=== PATIENT | female | born 1975 | race Caucasian/White ===

== ENCOUNTER 2019-11-03 15:38 | Inpatient (IN) | payer OTHER, SELFPAY ==
[~2019-11-03] VITALS: Ht 149.9 cm; Wt 54.9 kg
[~2019-11-03 15:38] MED LIST: CALCIUM GLUCONATE 1,000 MG in D5W MINI-BAG PLUS 100 ML IV ONE
[2019-11-03] MEDS ORDERED: ETOMIDATE INJ 20MG/10ML VIAL IV ONE (16:00)
[2019-11-03] MEDS ORDERED: NS 1,000 ML IV ONE (16:00)
[2019-11-03] MEDS ORDERED: SUCCINYLCHOLINE INJ 200 MG/10 ML VIAL (J0330) IV ONE (16:00)
[2019-11-03] MEDS ORDERED: NALOXONE INJ 2 MG/2 ML SYRINGE (J2310) IV STA (16:03)
--- NOTE | 2019-11-03 16:08 | REP ---
Portable chest x-ray: Single view. History: Drug overdose No comparison study. Findings: Endotracheal tube is in good position at the level of the proximal clavicles. The lungs are well inflated and clear. Pleural angles are sharp. Cardiomediastinal silhouette is unremarkable. There is mild gaseous distension of the stomach. Impression: Endotracheal tube in good position. Mildly distended stomach. Otherwise no active disease. Electronically Signed by Nabil Rivas MD 11/03/2019 03:59 P
[2019-11-03 16:14] LABS: BASO % 0.3 % (0.0-1.0); EOS % 0.6 % (0.0-3.0); HEMATOCRIT 39.7 % (36.0-47.0); HEMOGLOBIN 14.1 g/dl (12.0-15.5); LYMPH % 28.6 % (24.0-44.0); MEAN CORPUSCULAR HEMOGLOBIN 31.8 pg (27.0-33.0); MEAN CORPUSCULAR HGB CONC 35.5 g/dl (32.0-36.5); MEAN CORPUSCULAR VOLUME 89.4 fl (80.0-96.0); MONO # 0.6 10^3/uL (0.0-0.8); MONO % 7.8 % (0.0-5.0); NEUTROPHILS # 4.1 10^3/uL (1.5-8.5); NEUTROPHILS % 58.4 % (36.0-66.0); PLATELET COUNT, AUTOMATED 177 10^3/uL (150-450); RED BLOOD COUNT 4.44 10^6/uL (4.00-5.40)
[2019-11-03 16:37] LABS: OSMOLALITY SERUM 275 MOSM/KG (275-295)
[2019-11-03] MEDS ORDERED: CHARCOAL ACTIVATED LIQUID 25 GM/120 ML BTL PO ONE (16:45)
[2019-11-03] MEDS ORDERED: SODIUM BICARBONATE 8.4% INJ 50 ML SYRINGE IV ONE (16:45)
[2019-11-03 16:49] LABS: AMPHETAMINES LEVEL URINE NEGATIVE (NEGATIVE); BARBITURATES URINE NEGATIVE (NEGATIVE); BENZODIAZEPINES URINE NEGATIVE (NEGATIVE); CANNABINOIDS URINE NEGATIVE (NEGATIVE); COCAINE METABOLITE URINE NEGATIVE (NEGATIVE); METHADONE URINE NEGATIVE (NEGATIVE); OPIATES URINE POSITIVE (NEGATIVE); PHENCYCLIDINE URINE NEGATIVE (NEGATIVE)
[2019-11-03 16:49] LABS: ACETAMINOPHEN LEVEL 49.6 UG/ML (10.0-30.0); ALBUMIN 3.5 GM/DL (3.2-5.2); ALT/SGPT 12 U/L (12-78); BILIRUBIN,DIRECT 0.2 MG/DL (0.0-0.2); BILIRUBIN,TOTAL 0.9 MG/DL (0.2-1.0); BLOOD UREA NITROGEN 7 MG/DL (7-18); CALCIUM LEVEL 8.1 MG/DL (8.5-10.1); CARBON DIOXIDE LEVEL 22 MEQ/L (21-32); CHLORIDE LEVEL 101 MEQ/L (98-107); CPK CREATINE PHOSPHOKINASE 64 U/L (26-192); CREATININE FOR GFR 0.48 MG/DL (0.55-1.30); ETHYL ALCOHOL (ETHANOL) < 0.003 % (0.000-0.010); GLOMERULAR FILTRATION RATE > 60.0 (>58); GLUCOSE, FASTING 91 MG/DL (70-100); POTASSIUM SERUM 3.1 MEQ/L (3.5-5.1); SALICYLATE LEVEL 7.7 MG/DL (5.0-30.0); SODIUM LEVEL 134 MEQ/L (136-145); TOTAL PROTEIN 5.5 GM/DL (6.4-8.2)
[2019-11-03] MEDS ORDERED: ACETYLCYSTEINE 10,500 MG in D5W 250 ML IV ONE (17:00)
[2019-11-03 17:14] LABS: ABG BASE EXCESS -6.8 (-2.0-2.0); ABG HCO3 18.2 MEQ/L (22.0-26.0); ABG O2 SATURATION 98.9 % (95.0-99.0); ABG PARTIAL PRESSURE CO2 34.8 mmHg (35.0-45.0); ABG PARTIAL PRESSURE O2 163.7 mmHg (75.0-100.0); ABG TOTAL CO2 19.3 MEQ/L (22.0-29.0); ABG pH (ARTERIAL) 7.336 UNITS (7.350-7.450)
[2019-11-03] MEDS ORDERED: HUMI40KI SC (17:26)
[2019-11-03] MEDS ORDERED: SULF1TAB30 PO (17:26)
[2019-11-03] MEDS ORDERED: MED REC COMMENT (17:26)
[2019-11-03] MEDS ORDERED: METRCRM TOP (17:26)
--- NOTE | 2019-11-03 17:58 | REPVR ---
PROCEDURE INFORMATION: Exam: CT Head Without Contrast Exam date and time: 11/03/2019 4:00 PM Age: 44 years old Clinical indication: Other: Overdose; Additional info: Headache, altered mental, overdose TECHNIQUE: Imaging protocol: Computed tomography of the head without contrast. Radiation optimization: All CT scans at this facility use at least one of these dose optimization techniques: automated exposure control; mA and/or kV adjustment per patient size (includes targeted exams where dose is matched to clinical indication); or iterative reconstruction. COMPARISON: No relevant prior studies available. FINDINGS: Brain: No acute intracranial hemorrhage, cerebral edema, or midline shift. Ventricles: No hydrocephalus. Bones/joints: No acute fracture. Sinuses: No acute sinusitis. Mastoid air cells: Visualized mastoid air cells are well aerated. Soft tissues: Unremarkable. IMPRESSION: No acute intracranial abnormality. Electronically signed by: Indio Jin On 11/03/2019 17:57:43 PM
[2019-11-03] MEDS ORDERED: KCL 10MEQ/100ML SWI (KRUN) 10 MEQ in IV 1 EA IV ONE ×2 (18:00→19:30)
[2019-11-03] MEDS ORDERED: POTASSIUM CHLORIDE 10 MEQ SR TABLET PO ONE (18:00)
[2019-11-03] MEDS: propofoL 1,000 MG in IV 1 EA IV SCH (18:40)
--- NOTE | 2019-11-03 19:51 | HPEPDOC ---
[facility] Medical History & Physical Date of Admission Nov 03, 2019 Date of Service: Nov 03, 2019 Other Provider No PCP Attending Physician: SAGRARIO CROOKS DO History and Physical CHIEF COMPLAINT: Overdose on multiple medications, unresponsive HISTORY OF PRESENT ILLNESS: Patient is a 44 year old female who was found unresponsive by family at 1440 today, she had been texting with them until about 1030 this morning and had been seen earlier that morning without any concerns other than a headache at the time. She was found in her bed with 4 suicide notes next to bottles of pills including robaxin, hydrocodone, and amitriptyline. When her found her, he called 911 and was instructed to start CPR, this was continued by police. When EMS arrived they gave her several doses of narcan without response and upon arrival in the emergency department she was given an additional dose of narcan and was intubated. Poison control was called in the ED with recommendations to give activated charcoal. CBC, lactic acid, UA WNL. Urine opiates positive. PAST MEDICAL HISTORY: 1. Psoriatic arthritis PAST SURGICAL HISTORY: unknown. SOCIAL HISTORY: Unknown. FAMILY HISTORY: Unkown ALLERGIES: Please see below. REVIEW OF SYSTEMS: Unable to obtain secondary to being intubated HOME MEDICATIONS: Please see below. PHYSICAL EXAMINATION: VITAL SIGNS: See below GENERAL APPEARANCE: Sedate, intubated, non-toxic appearing female who appears stated age. HENT: Normocephalic, atraumatic. Pupils 3mm, equal, round, non-reactive to light. Nares patent. Endotracheal tube in place. CARDIOVASCULAR: tachycardic rate, regular rhythm, normal S1 and S2. No murmurs, gallops, or rubs. LUNGS: CTAB with full breath sounds bilaterally, no wheezes, crackles, or rhonchi. ABDOMEN: Soft, non-tender, non-distended. No masses or eccymosis. EXTREMITIES: No cyanosis or edema. NEUROLOGICAL: Patient is sedate presently. LABORATORY DATA: See below. IMAGING: CXR showing ETT in place. MICROBIOLOGY: Please see below. ASSESSMENT: 44 year old female presenting with intentional overdose with multiple medications PLAN: #. Multi-drug Overdose - Poison control contacted. Instructions given for activated charcoal, acetadote to be given. - Activated charcoal given. Initiating Acetadote loading dose over 1 hour. Following acetadote 21 hour protocol. - Initial tylenol level of 49, repeat tylenol levels, CMP's Q4H - QRS widening reduced on 2 hour repeat EKG. #. Acute Respiratory failure - Likely secondary to tylenol and opiate overdose - Will continue patient on propofol drip, ETT in place - Repeat ABG scheduled for tomorrow morning, will initiate SBT at that time. #. Elevated salicylate level - Initial elevated at 9, repeat at 2 hours down trending. #. Hypokalemia - Ordered x2 Kruns, starting patient on LR @rate of 125/hr. #. Hyponatremia - Giving LR, will continue to trend electrolytes. #. Suicide attempt - Will consult psychiatry once medically cleared. #. Psoriatic Arthritis - Holding home medications at this time Diet: NPO DVT/GI prophylaxis:heparin 5000mg SC TID/none indicated. Drips: none Code status: Full code. Disposition: Will continue to monitor in the ICU while intubated Vital Signs Vital Signs Date Time Temp Pulse Resp B/P (MAP) Pulse Ox O2 Delivery O2 Flow Rate FiO2 11/03/19 17:33 100 16 100 35 11/03/19 16:53 Ventilator 11/03/19 16:45 97/52 (67) 11/03/19 15:46 97.2 Laboratory Data Labs 24H Laboratory Tests 2 11/03/19 16:00: Immature Granulocyte % (Auto) 4.3H, Neutrophils (%) (Auto) 58.4, Lymphocytes (%) (Auto) 28.6, Monocytes (%) (Auto) 7.8H, Eosinophils (%) (Auto) 0.6, Basophils (%) (Auto) 0.3, Neutrophils # (Auto) 4.1, Lymphocytes # (Auto) 2.0, Monocytes # (Auto) 0.6, Eosinophils # (Auto) 0.0, Basophils # (Auto) 0.0, Nucleated Red Blood Cells % (auto) 0.0, Anion Gap 11, Glomerular Filtration Rate > 60.0, Osmolality 275, Calcium Level 8.1L, Total Bilirubin 0.9, Direct Bilirubin 0.2, Aspartate Amino Transf (AST/SGOT) 13, Alanine Aminotransferase (ALT/SGPT) 12, Alkaline Phosphatase 42L, Total Creatine Kinase 64, Total Protein 5.5L, Albumin 3.5, Albumin/Globulin Ratio 1.75, Thyroid Stimulating Hormone (TSH) 4.980H, Salicylates Level 7.7, Acetaminophen Level 49.6H, Ethyl Alcohol Level < 0.003 11/03/19 16:01: Urine Color SIRENA, Urine Appearance CLEAR, Urine pH 5.0, Urine Specific [place] 1.014, Urine Protein NEGATIVE, Urine Glucose (UA) NEGATIVE, Urine Ketones 2+H, Urine Blood NEGATIVE, Urine Nitrite NEGATIVE, Urine Bilirubin 1+H, Urine Urobilinogen 0.2, Urine Leukocyte Esterase NEGATIVE, Urine WBC (Auto) 1, Urine RBC (Auto) 1, Urine Hyaline Casts (Auto) 27, Urine Bacteria (Auto) NEGATIVE, Urine Squamous Epithelial Cells 0, Urine Mucus (Auto) SMALL, Urine Sperm (Auto) , Urine Opiates Screen POSITIVEH, Urine Methadone Screen NEGATIVE, Urine Barbiturates Screen NEGATIVE, Urine Phencyclidine Screen NEGATIVE, Urine Amphetamines Screen NEGATIVE, Urine Benzodiazepines Screen NEGATIVE, Urine Cocaine Metabolite Screen NEGATIVE, Urine Cannabinoids Screen NEGATIVE 11/03/19 17:10: Blood Gas Bicarbonate Standard 19.0L, Arterial Blood pH 7.336L, Arterial Blood Partial Pressure CO2 34.8L, Arterial Blood Partial Pressure O2 163.7H, Arterial Blood Total CO2 19.3L, Arterial Blood HCO3 18.2L, Arterial Blood Base Excess - 6.8L, Arterial Blood Oxygen Saturation 98.9 CBC/BMP Laboratory Tests 11/03/19 16:00 Home Medications Scheduled Adalimumab (Humira) 40 Mg/0.8 Ml Syringekit, 40 MG SC Q2WK Metronidazole (Metronidazole) 45 Gm Cream..g., 1 APLCT TOP DAILY APPLY TO CHEEKS/CHIN AND TEMPLES DAILY Sulfasalazine (Sulfasalazine) 500 Mg Tablet, 500 MG PO BID Miscellaneous Medications [Med Rec Comment] OBTAINED LIST FROM [employer]. STATED PT TAKES METHOTREXATE BUT NOT FILLED WITH THE PHARMACY. Allergies Coded Allergies: No Known Allergies (Verified Allergy, Unknown, 11/03/19) A-FIB/CHADSVASC A-FIB History Current/History of A-Fib/PAF?: No Current PO Anticoag Therapy: No Age/Risk Factor Scoring CHADSVASC: CHADSVASC Response (Comments) Value Age Risk Factor Age < 65 years old 0 Gender Risk Factor Female 1 Hx of CHF No 0 Hx of HTN No 0 Hx of Stroke/TIA/or VTE No 0 Hx of Diabetes No 0 Hx of Vascular Disease No 0 Total 1 GME ATTESTATION GME ATTESTATION My faculty preceptor for this patient encounter was physically present during the encounter and was fully available. All aspects of the patient interview, examination, medical decision making process, and medical care plan development were reviewed and approved by the faculty preceptor. The faculty preceptor is aware and concurs with the plan as stated in the body of this note and will attest to such by his/her cosignature. ATTENDING NOTE Agree with above as documented by the resident including history, physical, and assessment except as otherwise noted below. Patient seen and examined independently and with the resident. Patient is a 44-year-old female who was found unconscious after an apparent intentional overdose. Multiple medications taken including Robaxin, [place], amitriptyline who was found unresponsive by her this afternoon. [facility] she failed to improve with multiple doses of Narcan. Patient remains intubated and sedated on propofol. She was gove activated charcoal in the emergency department as well as sodium bicarbonate. 21 hour N- acetylcysteine for reversal of Tylenol overdose was also started. We'll monitor electrolytes, liver function, and Tylenol every 4 hours. We'll repeat EKG in the morning. We'll monitor closely in the ICU. We'll do daily sedation vacation and SBT. Upon improve or patient will need to be transferred for mental health evaluation. Assessment 1. Intentional overdose 2. Acute hypoxic respiratory failure 3. Hypokalemia Dispo: Consulted with poison control. We'll monitor in the ICU. Continue N- acetylcysteine per 21 hours. We'll monitor EKG, electrolytes, liver enzymes, Tylenol level. Billin DUSTIN KAUR DO Nov 03, 2019 18:16 SAGRARIO CROOKS DO Nov 03, 2019 20:22
[2019-11-03] MEDS ORDERED: ACETYLCYSTEINE 3,500 MG in D5W 500 ML IV ONE (20:00)
--- NOTE | 2019-11-03 20:09 | IPNPDOC ---
Date Seen The patient was seen on 11/03/19. Progress Note poison control Michelle discussed acetaminophen level with [employer] with the following recommendations: -if time of ingestion is confirmed at 1030 am, no need to treat for acetaminophen toxicity with acetadote. -if unknown time of ingestion, will need to treat with acetadote. Plan: await repeat acetaminophen level call poison control (willbe in the office until 3am)with level, to decide if treatment is needed. VS, I&O, 24H, Fishbone Vital Signs/I&O Vital Signs Date Time Temp Pulse Resp B/P (MAP) Pulse Ox O2 Delivery O2 Flow Rate FiO2 11/03/19 19:30 111/68 (82) 11/03/19 19:25 88 100 11/03/19 18:10 16 Ventilator 11/03/19 17:33 35 11/03/19 15:46 97.2 Laboratory Data 24H LABS Laboratory Tests 2 11/03/19 16:00: Immature Granulocyte % (Auto) 4.3H, Neutrophils (%) (Auto) 58.4, Lymphocytes (%) (Auto) 28.6, Monocytes (%) (Auto) 7.8H, Eosinophils (%) (Auto) 0.6, Basophils (%) (Auto) 0.3, Neutrophils # (Auto) 4.1, Lymphocytes # (Auto) 2.0, Monocytes # (Auto) 0.6, Eosinophils # (Auto) 0.0, Basophils # (Auto) 0.0, Nucleated Red Blood Cells % (auto) 0.0, Anion Gap 11, Glomerular Filtration Rate > 60.0, Osmolality 275, Calcium Level 8.1L, Total Bilirubin 0.9, Direct Bilirubin 0.2, Aspartate Amino Transf (AST/SGOT) 13, Alanine Aminotransferase (ALT/SGPT) 12, Alkaline Phosphatase 42L, Total Creatine Kinase 64, Total Protein 5.5L, Albumin 3.5, Albumin/Globulin Ratio 1.75, Thyroid Stimulating Hormone (TSH) 4.980H, Salicylates Level 7.7, Acetaminophen Level 49.6H, Ethyl Alcohol Level < 0.003 11/03/19 16:01: Urine Color SIRENA, Urine Appearance CLEAR, Urine pH 5.0, Urine Specific [place] 1.014, Urine Protein NEGATIVE, Urine Glucose (UA) NEGATIVE, Urine Ketones 2+H, Urine Blood NEGATIVE, Urine Nitrite NEGATIVE, Urine Bilirubin 1+H, Urine Urobilinogen 0.2, Urine Leukocyte Esterase NEGATIVE, Urine WBC (Auto) 1, Urine RBC (Auto) 1, Urine Hyaline Casts (Auto) 27, Urine Bacteria (Auto) NEGATIVE, Urine Squamous Epithelial Cells 0, Urine Mucus (Auto) SMALL, Urine Sperm (Auto) , Urine Opiates Screen POSITIVEH, Urine Methadone Screen NEGATIVE, Urine Barbiturates Screen NEGATIVE, Urine Phencyclidine Screen NEGATIVE, Urine Amphetamines Screen NEGATIVE, Urine Benzodiazepines Screen NEGATIVE, Urine Cocai ne Metabolite Screen NEGATIVE, Urine Cannabinoids Screen NEGATIVE 11/03/19 17:10: Blood Gas Bicarbonate Standard 19.0L, Arterial Blood pH 7.336L, Arterial Blood Partial Pressure CO2 34.8L, Arterial Blood Partial Pressure O2 163.7H, Arterial Blood Total CO2 19.3L, Arterial Blood HCO3 18.2L, Arterial Blood Base Excess - 6.8L, Arterial Blood Oxygen Saturation 98.9 11/03/19 18:40: Salicylates Level 6.6, Lactic Acid Level 1.6 11/03/19 19:49: CBC/BMP Laboratory Tests 11/03/19 16:00 ALBERTO ARAUJO MD Nov 03, 2019 20:09
[2019-11-03 20:31] LABS: ACETAMINOPHEN LEVEL 30.9 UG/ML (10.0-30.0); ALBUMIN 2.9 GM/DL (3.2-5.2); ALT/SGPT 17 U/L (12-78); BILIRUBIN,TOTAL 1.1 MG/DL (0.2-1.0); BLOOD UREA NITROGEN 6 MG/DL (7-18); CALCIUM LEVEL 7.5 MG/DL (8.5-10.1); CARBON DIOXIDE LEVEL 24 MEQ/L (21-32); CHLORIDE LEVEL 102 MEQ/L (98-107); CREATININE FOR GFR 0.57 MG/DL (0.55-1.30); GLOMERULAR FILTRATION RATE > 60.0 (>58); GLUCOSE, FASTING 170 MG/DL (70-100); SODIUM LEVEL 136 MEQ/L (136-145); TOTAL PROTEIN 4.8 GM/DL (6.4-8.2)
[2019-11-03 20:32] LABS: POTASSIUM SERUM 2.8 MEQ/L (3.5-5.1)
[2019-11-03 20:46] VITALS: BP 144/90
[2019-11-03] MEDS: LR 1,000 ML IV SCH (21:24)
[2019-11-03] MEDS: MAG SULF 1GM/100ML (MAG RUN) 1 GM in IV 1 EA IV SCH ×2 (21:25→22:36)
[2019-11-03] MEDS: CHLORHEXIDINE GLUCONATE 0.12 % 15ML UDC (PERIDEX ORAL RINSE) MT SCH (21:30)
[2019-11-03] MEDS: HEPARIN SOD (PORCINE) 5000 UNITS/ML VIAL (J1644 PER 1000UNITS) SC SCH (21:39)
--- NOTE | 2019-11-03 21:39 | ECGEPIP ---
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
[2019-11-03 21:50] VITALS: BP 131/75
[2019-11-03 22:00] VITALS: BP 127/73
[2019-11-03 23:00] VITALS: BP 128/73
[2019-11-03 23:01] LABS: ALT/SGPT 11 U/L (12-78); BLOOD UREA NITROGEN 6 MG/DL (7-18); CALCIUM LEVEL 7.3 MG/DL (8.5-10.1); CARBON DIOXIDE LEVEL 21 MEQ/L (21-32); CHLORIDE LEVEL 104 MEQ/L (98-107); CREATININE FOR GFR 0.52 MG/DL (0.55-1.30); GLOMERULAR FILTRATION RATE > 60.0 (>58); GLUCOSE, FASTING 179 MG/DL (70-100); MAGNESIUM LEVEL 2.1 MG/DL (1.8-2.4); SODIUM LEVEL 137 MEQ/L (136-145)
[2019-11-03] MEDS ORDERED: ETOMIDATE INJ 20MG/10ML VIAL ONE (23:39)
[2019-11-03] MEDS ORDERED: SUCCINYLCHOLINE 100 MG/5 ML SYRINGE (J0330) ONE (23:39)
[2019-11-04] VITALS (28 sets, daily range): BP systolic 88–171; BP diastolic 51–86; O2SAT 96–99
[2019-11-04] MEDS ORDERED: ACETYLCYSTEINE 7,000 MG in D5W 1,000 ML IV ONE ×2
[2019-11-04] MEDS: KCL 10MEQ/100ML SWI (KRUN) 10 MEQ in IV 1 EA IV SCH ×12 (00:26→16:15)
[2019-11-04] MEDS ORDERED: CALCIUM GLUCONATE 1,000 MG in D5W MINI-BAG PLUS 100 ML IV ONE ×2 (00:30→12:00)
[2019-11-04] MEDS: propofoL 1,000 MG in IV 1 EA IV SCH (02:56)
[2019-11-04 04:58] LABS: HEMATOCRIT 37.6 % (36.0-47.0); HEMOGLOBIN 13.4 g/dl (12.0-15.5); MEAN CORPUSCULAR HEMOGLOBIN 31.7 pg (27.0-33.0); MEAN CORPUSCULAR HGB CONC 35.6 g/dl (32.0-36.5); MEAN CORPUSCULAR VOLUME 88.9 fl (80.0-96.0); PLATELET COUNT, AUTOMATED 160 10^3/uL (150-450); RED BLOOD COUNT 4.23 10^6/uL (4.00-5.40); WHITE BLOOD COUNT 10.1 10^3/uL (4.0-10.0)
[2019-11-04 05:13] LABS: ALT/SGPT 10 U/L (12-78); BILIRUBIN,TOTAL 0.6 MG/DL (0.2-1.0); BLOOD UREA NITROGEN 5 MG/DL (7-18); CALCIUM LEVEL 7.9 MG/DL (8.5-10.1); CARBON DIOXIDE LEVEL 24 MEQ/L (21-32); CHLORIDE LEVEL 103 MEQ/L (98-107); CREATININE FOR GFR 0.48 MG/DL (0.55-1.30); GLOMERULAR FILTRATION RATE > 60.0 (>58); GLUCOSE, FASTING 140 MG/DL (70-100); POTASSIUM SERUM 3.2 MEQ/L (3.5-5.1); SODIUM LEVEL 134 MEQ/L (136-145); TOTAL PROTEIN 5.3 GM/DL (6.4-8.2)
[2019-11-04] MEDS: HEPARIN SOD (PORCINE) 5000 UNITS/ML VIAL (J1644 PER 1000UNITS) SC SCH ×3 (05:46→21:04)
[2019-11-04 05:49] LABS: ABG BASE EXCESS -3.3 (-2.0-2.0); ABG HCO3 20.7 MEQ/L (22.0-26.0); ABG O2 SATURATION 99.1 % (95.0-99.0); ABG PARTIAL PRESSURE O2 187.1 mmHg (75.0-100.0); ABG STANDARD HCO3 21.8 MEQ/L (22.0-26.0); ABG TOTAL CO2 21.8 MEQ/L (22.0-29.0); ABG pH (ARTERIAL) 7.403 UNITS (7.350-7.450)
[2019-11-04] MEDS ORDERED: LORazepam 2 MG/ML VIAL (J2060) As Ordered ONE ×2 (07:34→22:25)
[2019-11-04] MEDS ORDERED: LORazepam 2 MG/ML VIAL (J2060) IV STA ×2 (07:40→23:58)
[2019-11-04] MEDS: dexmedeTOMidine 200 MCG in IV 1 EA IV SCH ×2 (07:52→12:52)
--- NOTE | 2019-11-04 08:15 | ECGEPIP ---
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 Subtle diffuse J-point elevation No change from 10/30/19. Electronically Signed on 11-04-2019 8:14:49 EST by Angel Morse
--- NOTE | 2019-11-04 08:40 | REP ---
Portable chest, 08:26 a.m., single AP view with the patient semi upright, post NG tube placement: There has been interval passage of a nasogastric tube. The distal tip of the nasogastric tube is in the upper abdomen, likely in the stomach, the precise location of the distal tip is excluded at the inferior film margin. There is an endotracheal tube with the tip terminating satisfactorily at the level of the aortic arch, above the jaguar, unchanged. Lung [place] are clear. Cardiac size is normal. The musa, mediastinum, skeletal structures are unremarkable. Impression: There are no acute cardiopulmonary findings. The endotracheal tube and nasogastric tube are in satisfactory positions. Electronically Signed by Papito Ornelas MD 11/04/2019 08:33 A
[2019-11-04] MEDS ORDERED: FAMOTIDINE 20 MG TAB PO SCH (09:00)
[2019-11-04] MEDS ORDERED: NICOTINE 14 MG/24 HR TRANSDERMAL TD PRN (09:00)
[2019-11-04] MEDS: CHLORHEXIDINE GLUCONATE 0.12 % 15ML UDC (PERIDEX ORAL RINSE) MT SCH ×2 (10:06→21:03)
[2019-11-04] MEDS ORDERED: LORazepam 2 MG/ML VIAL (J2060) IV PRN ×2 (10:30→19:00)
[2019-11-04] MEDS ORDERED: LR 1,000 ML IV ONE ×2 (10:30→14:00)
[2019-11-04] MEDS ORDERED: MAG SULF 1GM/100ML (MAG RUN) 1 GM in IV 1 EA IV ONE ×2 (11:00→12:00)
[2019-11-04 11:03] LABS: MAGNESIUM LEVEL 1.8 MG/DL (1.8-2.4); POTASSIUM SERUM 3.4 MEQ/L (3.5-5.1)
[2019-11-04] MEDS: LR 1,000 ML IV SCH ×3 (11:30→18:47)
[2019-11-04] MEDS ORDERED: POLYVINYL ALCOHOL OPHTH SOLN 15 ML(LIQUITEARS) OU PRN (13:30)
--- NOTE | 2019-11-04 14:18 | IPNPDOC ---
Date Seen The patient was seen on 11/04/19. Progress Note SUBJECTIVE: Patient seen and examined this morning at bedside. Her brother in law who is a family medicine physician is also in the room. He states she has no additional PMHx, no prior surgeries, family hx of HTN, elevated cholesterol levels, she has smoked less than 1/2PPD since high school, rare EtOH use, no recreational drug use, no recent travel, only travel to [place] many years ago, and 2 dogs at home. The pills she obtained were old pills of her 's and the hydrocodone was also an old medicationHe states their is no prior history of mental illness and this was very uncharacteristic of her to do. He states that they have noticed she has been acting strangely for the past month since she started the sulfasalazine for her RA. He notes personality changes and increased paranoia. Brief hospital course: Patient is a 44 year old female found unresponsive by family at 1440 on 11/03/2019 beside pill bottles containing robaxin, hydrocodone, and amitriptyline and clutching suicide notes. She had been texting them until about 1030 that morning and had been seen earlier that morning without concerns other than a headache at the time. Her found her, called EMS, initiated CPR, EMS noted a pulse on arrival and patient was intubated in the ED. Poison control was called in the ED with recommendations to give activated charcoal and acetadote. CBC, lactic acid, UA WNL. Urine opiates positive. Patient received step 1 of acetadote overnight. OBJECTIVE: PHYSICAL EXAMINATION: VITAL SIGNS: Tmax 98.3 overnight GENERAL APPEARANCE: Sedate, intubated, non-toxic appearing female who appears stated age. HENT: Normocephalic, atraumatic. PERRLA. Nares patent. Endotracheal tube in place. CARDIOVASCULAR: tachycardic rate, regular rhythm, normal S1 and S2. No murmurs, gallops, or rubs. LUNGS: CTAB with full breath sounds bilaterally, no wheezes, crackles, or rhonchi. ABDOMEN: Soft, non-tender, non-distended. No masses or eccymosis. EXTREMITIES: No cyanosis or edema. NEUROLOGICAL: Not alert, non-purposeful movements of extremities, withdraws to pain. Does not open eyes to pain or stimuli. IMAGING: CT head negative on 11/03 CXR on 11/04 with no acute abnormalities, NG and ET tube in satisfactory positions. ASSESSMENT/PLAN: #. Multi-drug Overdose - Poison control contacted overnight and 2nd/3rd steps of 21 hour regimen D/C'd, last tylenol level of 10.6 @ 0411 had been downtrending. - Repeat EKG this AM with prolonged QTc, repeat labs showing K of 3.2. Contacted poison control again who recommended electrolyte replacements only. - Ordered 1G calcium gluconate, 2 mag runs, 6k of Kruns with 1 liter LR bolus, continuing to run LR maintenance fluids, have ordered q4 hr repeat labs and will trend to ensure we are keeping up with ongoing losses. #. Acute Respiratory failure - Likely secondary to tylenol and opiate overdose - ABG this AM were good, will continue patient at current settings; PRVC 16, 5, 350, 35%FiO2 - Weaning propofol drip and starting precedex drip for easier time with SBT, but will likely hold off on doing so today as patient is requiring significant rehydration and electrolyte replacement. - Repeat ABG scheduled for tomorrow morning, will try SBT once HR, labs have normalized. - PRN ativan Q3H ordered, artificial tears, chlorhexidine wash ordered. #. Dehydration - Patient's urine output has not been substantive and per she has not been eating or drinking much in the past week, will continue to give LR@125 ml/hr #. Sinus tachycardia - Suspect this is secondary to patient beginning to come off the propofol and having some pain. Planning to repeat EKG @1400 to ensure QTc returning to normal. #. Hypokalemia - See multidrug overdose, patient is receiving multiple Kruns, LR maintenance, LR bolus. #. Hyponatremia - Giving LR #. Suicide attempt - Will consult psychiatry once medically cleared. #. Psoriatic Arthritis - Holding home medications at this time RESOLVED PROBLEMS: Salicylate elevation. Diet: NPO DVT/GI prophylaxis: Heparin 5000mg SC TID/none indicated. Drips: none Code status: Full code. Disposition: Will continue to monitor in the ICU while intubated. VS, I&O, 24H, Fishbone Vital Signs/I&O Vital Signs Date Time Temp Pulse Resp B/P (MAP) Pulse Ox O2 Delivery O2 Flow Rate FiO2 11/04/19 12:00 28 11/04/19 12:00 98.9 111 24 131/69 (89) 99 Ventilator I&O- Last 24 Hours up to 6 AM 11/04/19 06:00 Intake Total 3261.5 ml Output Total 678 ml Balance 2583.5 ml Laboratory Data 24H LABS Laboratory Tests 2 11/03/19 16:00: Immature Granulocyte % (Auto) 4.3H, Neutrophils (%) (Auto) 58.4, Lymphocytes (%) (Auto) 28.6, Monocytes (%) (Auto) 7.8H, Eosinophils (%) (Auto) 0.6, Basophils (%) (Auto) 0.3, Neutrophils # (Auto) 4.1, Lymphocytes # (Auto) 2.0, Monocytes # (Auto) 0.6, Eosinophils # (Auto) 0.0, Basophils # (Auto) 0.0, Nucleated Red Blood Cells % (auto) 0.0, Anion Gap 11, Glomerular Filtration Rate > 60.0, Osmolality 275, Calcium Level 8.1L, Total Bilirubin 0.9, Direct Bilirubin 0.2, Aspartate Amino Transf (AST/SGOT) 13, Alanine Aminotransferase (ALT/SGPT) 12, Alkaline Phosphatase 42L, Total Creatine Kinase 64, Total Protein 5.5L, Albumin 3.5, Albumin/Globulin Ratio 1.75, Thyroid Stimulating Hormone (TSH) 4.980H, Salicylates Level 7.7, Acetaminophen Level 49.6H, Ethyl Alcohol Level < 0.003 11/03/19 16:01: Urine Color SIRENA, Urine Appearance CLEAR, Urine pH 5.0, Urine Specific [place] 1.014, Urine Protein NEGATIVE, Urine Glucose (UA) NEGATIVE, Urine Ketones 2+H, Urine Blood NEGATIVE, Urine Nitrite NEGATIVE, Urine Bilirubin 1+H, Urine Urobilinogen 0.2, Urine Leukocyte Esterase NEGATIVE, Urine WBC (Auto) 1, Urine RBC (Auto) 1, Urine Hyaline Casts (Auto) 27, Urine Bacteria (Auto) NEGATIVE, Urine Squamous Epithelial Cells 0, Urine Mucus (Auto) SMALL, Urine Sperm (Auto) , Urine Opiates Screen POSITIVEH, Urine Methadone Screen NEGATIVE, Urine [place]ichi turates Screen NEGATIVE, Urine Phencyclidine Screen NEGATIVE, Urine Amphetamines Screen NEGATIVE, Urine Benzodiazepines Screen NEGATIVE, Urine Cocaine Metabolite Screen NEGATIVE, Urine Cannabinoids Screen NEGATIVE 11/03/19 17:10: Blood Gas Bicarbonate Standard 19.0L, Arterial Blood pH 7.336L, Arterial Blood Partial Pressure CO2 34.8L, Arterial Blood Partial Pressure O2 163.7H, Arterial Blood Total CO2 19.3L, Arterial Blood HCO3 18.2L, Arterial Blood Base Excess - 6.8L, Arterial Blood Oxygen Saturation 98.9 11/03/19 18:40: Salicylates Level 6.6, Lactic Acid Level 1.6 11/03/19 19:49: Anion Gap 10, Glomerular Filtration Rate > 60.0, Calcium Level 7.5L, Magnesium Level 1.6L, Total Bilirubin 1.1H, Aspartate Amino Transf (AST/SGOT) 10, Alanine Aminotransferase (ALT/SGPT) 17, Alkaline Phosphatase 35L, Total Protein 4.8L, Albumin 2.9L, Albumin/Globulin Ratio 1.53, Acetaminophen Level 30.9H 11/03/19 22:23: Whole Blood Ionized Calcium 4.1L 11/03/19 22:24: Anion Gap 12, Glomerular Filtration Rate > 60.0, Calcium Level 7.3L, Magnesium Level 2.1, Total Bilirubin 1.0, Aspartate Amino Transf (AST/SGOT) 9, Alanine Aminotransferase (ALT/SGPT) 11L, Alkaline Phosphatase 38L, Total Protein 5.0L, Albumin 3.0L, Albumin/Globulin Ratio 1.50, Acetaminophen Level 24.9 11/04/19 04:11: Anion Gap 7L, Glomerular Filtration Rate > 60.0, Calcium Level 7.9L, Magnesium Level 2.0, Total Bilirubin 0.6, Aspartate Amino Transf (AST/SGOT) 8, Alanine Aminotransferase (ALT/SGPT) 10L, Alkaline Phosphatase 38L, Total Protein 5.3L, Albumin 3.0L, Albumin/Globulin Ratio 1.30, Acetaminophen Level 10.6, Nucleated Red Blood Cells % (auto) 0.0 11/04/19 05:37: Blood Gas Bicarbonate Standard 21.8L, Arterial Blood pH 7.403, Arterial Blood Partial Pressure CO2 34.0L, Arterial Blood Partial Pressure O2 187.1H, Arterial Blood Total CO2 21.8L, Arterial Blood HCO3 20.7L, Arterial Blood Base Excess - 3.3L, Arterial Blood Oxygen Saturation 99.1H 11/04/19 10:27: Magnesium Level 1.8 CBC/BMP Laboratory Tests 11/03/19 16:00 11/03/19 19:49 11/03/19 22:24 11/04/19 04:11 11/04/19 10:27 GME ATTESTATION GME ATTESTATION My faculty preceptor for this patient encounter was physically present during the encounter and was fully available. All aspects of the patient interview, examination, medical decision making process, and medical care plan development were reviewed and approved by the faculty preceptor. The faculty preceptor is aware and concurs with the plan as stated in the body of this note and will attest to such by his/her cosignature. ATTENDING NOTE Patient seen and examined independently and with the resident. Agree with above as documented by the resident including history, physical, and assessment except as otherwise noted below. Patient is a 44-year-old female who was found unconscious after an apparent intentional overdose. Multiple medications taken including Robaxin, [place], amitriptyline who was found unresponsive by her this afternoon. Patient remains intubated and sedated on propofol. She was given activated charcoal in the emergency department as well as sodium bicarbonate. Overnight N- acetylcysteine was discontinued at the recommendation of poison control. Serial labs were also discontinued by hospitalist service overnight. This morning patient remained hypokalemic, hypocalcemic, hypomagnesia with a prolonged QT hypocalcemic. Electrolytes were replaced aggressively with improvement in QTC prolongation. Patient also clinically dehydrated and tachycardic and therefore 2 L IV fluid bolus was given subsequent improvement in heart rate. Patient underwent a sedation vacation this morning and propofol was discontinued. Precedex was started as patient was agitated with discontinuation of propofol. Patient remained lethargic and agitated unable to follow commands most of the morning, however in late afternoon, patient acting appropriately, breathing well on CPAP trial, and following commands. Patient was extubated to nasal cannula without incident. Following extubation she reports that she has been feeling "down in the dumps" for the last 3-4 years. She denies previous suicide ideation, but does admit to suicide attempt preceding this hospitalization. Assessment 1. Intentional overdose 2. Acute hypoxic respiratory failure 3. Hypokalemia 4. Clinical dehydration 5. QTC prolongation 6. Hypo-magnesium 7. Hypocalcemia 8. Suicide ideation CODE STATUS: Full code. Has been at bedside tract is surrogate decision maker. Dispo: We'll monitor in the ICU overnight status post extubation. Anticipate clearance to mental health tomorrow. Critical care time: 60 minutes. Time spent evaluating patient interpreted, interpreting labs, adjusting therapies, and monitoring recently throughout the day. Time also spent at bedside are immediately available during sedation vacation, spontaneous breathing trial, and subsequent expiration. Billin DUSTIN KAUR DO Nov 04, 2019 14:18 SAGRARIO CROOKS DO Nov 04, 2019 19:14
[2019-11-04 15:13] LABS: MAGNESIUM LEVEL 2.4 MG/DL (1.8-2.4); POTASSIUM SERUM 4.7 MEQ/L (3.5-5.1)
[2019-11-04 18:45] LABS: MAGNESIUM LEVEL 2.2 MG/DL (1.8-2.4); POTASSIUM SERUM 4.8 MEQ/L (3.5-5.1)
--- NOTE | 2019-11-04 18:56 | ECGEPIP ---
[facility] Test Date: 2019-11-04 Pat Name: PERCY AHUJA Department: Room: [place] [address] Gender: Female Retail Warehouse Associate: RF : 1975 Requested By: DUSTIN KAUR Order Number: [id number] Reading MD: Angel Morse Measurements Intervals [place] Rate: 95 P: 45 NV: 160 QRS: 16 QRSD: 99 T: 50 QT: 358 QTc: 451 Interpretive Statements SINUS RHYTHM Somewhat low voltages with slow precordial R wave progression and persistent S waves V5 and V6; body habitus versus pulmonary disease. Subtle diffuse J-point elevation Slightly slower heart rate but otherwise no change from earlier the same day. Electronically Signed on 11-04-2019 18:56:01 EST by Angel Morse
[2019-11-05] VITALS (8 sets, daily range): BP systolic 106–157; BP diastolic 60–97; O2SAT 97
[2019-11-05] MEDS ORDERED: LORazepam 2 MG/ML VIAL (J2060) As Ordered ONE (00:02)
[2019-11-05] MEDS: LR 1,000 ML IV SCH (00:36)
[2019-11-05 04:35] LABS: HEMATOCRIT 31.9 % (36.0-47.0); MEAN CORPUSCULAR HEMOGLOBIN 31.7 pg (27.0-33.0); MEAN CORPUSCULAR HGB CONC 35.1 g/dl (32.0-36.5); MEAN CORPUSCULAR VOLUME 90.4 fl (80.0-96.0); PLATELET COUNT, AUTOMATED 160 10^3/uL (150-450); RED BLOOD COUNT 3.53 10^6/uL (4.00-5.40); WHITE BLOOD COUNT 8.8 10^3/uL (4.0-10.0)
[2019-11-05 04:38] LABS: HEMOGLOBIN 11.2 g/dl (12.0-15.5)
[2019-11-05 05:00] LABS: ALBUMIN 2.9 GM/DL (3.2-5.2); ALT/SGPT 12 U/L (12-78); BILIRUBIN,TOTAL 0.7 MG/DL (0.2-1.0); BLOOD UREA NITROGEN 2 MG/DL (7-18); CALCIUM LEVEL 7.4 MG/DL (8.5-10.1); CARBON DIOXIDE LEVEL 30 MEQ/L (21-32); CHLORIDE LEVEL 111 MEQ/L (98-107); CREATININE FOR GFR 0.49 MG/DL (0.55-1.30); GLOMERULAR FILTRATION RATE > 60.0 (>58); GLUCOSE, FASTING 90 MG/DL (70-100); POTASSIUM SERUM 3.6 MEQ/L (3.5-5.1); SODIUM LEVEL 145 MEQ/L (136-145); TOTAL PROTEIN 5.1 GM/DL (6.4-8.2)
[2019-11-05 06:06] LABS: ABG BASE EXCESS 3.9 (-2.0-2.0); ABG O2 SATURATION 95.6 % (95.0-99.0); ABG PARTIAL PRESSURE CO2 35.4 mmHg (35.0-45.0); ABG PARTIAL PRESSURE O2 74.7 mmHg (75.0-100.0); ABG STANDARD HCO3 27.9 MEQ/L (22.0-26.0); ABG TOTAL CO2 28.1 MEQ/L (22.0-29.0)
[2019-11-05] MEDS: HEPARIN SOD (PORCINE) 5000 UNITS/ML VIAL (J1644 PER 1000UNITS) SC SCH ×3 (06:22→21:17)
--- NOTE | 2019-11-05 07:48 | REP ---
Portable chest, 06:59 a.m., single AP view with the patient upright: Comparison is 11/04/2019. The endotracheal tube and nasogastric tube have been removed. Lung rutledge are clear. Cardiac size is normal. The musa, mediastinum, skeletal structures are unremarkable. Impression: The endotracheal tube and nasogastric tube have been removed. There are no acute cardiopulmonary findings. Electronically Signed by Papito Ornelas MD 11/05/2019 07:41 A
[2019-11-05] MEDS: FOLIC ACID 1 MG TAB PO SCH (09:00)
[2019-11-05] MEDS: CHLORHEXIDINE GLUCONATE 0.12 % 15ML UDC (PERIDEX ORAL RINSE) MT SCH (09:01)
[2019-11-05] MEDS: POTASSIUM CHLORIDE 10 MEQ SR TABLET PO SCH (10:29)
[2019-11-05] MEDS: K-PHOS ORIGINAL (POT.ACID PHOSPHATE) 500MG TAB PO SCH ×3 (10:29→21:16)
--- NOTE | 2019-11-05 11:28 | IPNPDOC ---
Date Seen The patient was seen on 11/05/19. Progress Note SUBJECTIVE: Patient seen and examined this morning at bedside, she is doing well off the vent. Overnight she did become agitated and was thought to be having hallucinations and talking to persons who weren't present. She was given a 1 mg dose of Ativan. She did not recall doing this on questioning. She stated she took the pills because she wanted to go away and relays that she has had increased anxiety and stress recently as her mother was recently diagnosed with alzheimer's. She denies feeling as though she had been experiencing any side effects on starting the sulfasalazine. Brief hospital course: Patient is a 44 year old female found unresponsive by family at 1440 on 11/03/2019 beside pill bottles containing robaxin, hydrocodone, and amitriptyline and clutching suicide notes. She had been texting them until about 1030 that morning and had been seen earlier that morning without concerns other than a headache at the time. Her found her, called EMS, initiated CPR, EMS noted a pulse on arrival and patient was intubated in the ED. Poison control was called in the ED with recommendations to give activated charcoal and acetadote. CBC, lactic acid, UA WNL. Urine opiates positive. Patient received step 1 of acetadote overnight. OBJECTIVE: PHYSICAL EXAMINATION: VITAL SIGNS: Tmax 98.3 overnight GENERAL APPEARANCE: AOx3 HENT: Normocephalic, atraumatic. PERRLA. Nares patent. Endotracheal tube in place. CARDIOVASCULAR: tachycardic rate, regular rhythm, normal S1 and S2. No murmurs, gallops, or rubs. LUNGS: CTAB with full breath sounds bilaterally, no wheezes, crackles, or rhonchi. ABDOMEN: Soft, non-tender, non-distended. No masses or eccymosis. EXTREMITIES: No cyanosis or edema. NEUROLOGICAL: Not alert, non-purposeful movements of extremities, withdraws to pain. Does not open eyes to pain or stimuli. PSYCH: Presently denies SI, HI, auditory or visual hallucinations. IMAGING: CT head negative on 11/03 CXR on 11/04 with no acute abnormalities, NG and ET tube in satisfactory positions. ASSESSMENT/PLAN: #. Intentional multi-drug overdose - Poison control contacted us this AM and advised repeat EKG in light of her ongoing sinus tachycardia. - See electrolyte abnormalities below for replacement therapy. #. Dehydration - Patient's urine output has not been substantive and per she has not been eating or drinking much in the past week, will continue to give LR@125 ml/hr - Discontinuing kebede catheter. #. Sinus tachycardia - Suspect this is secondary to dehydration. Repeat EKG ordered this AM to ensure no remaining interval abnormalities. #. Hypophosphatemia - Initiating replacement PO phosphorus over the next 48 hours. #. Hypokalemia - Patient's K was borderline this AM, will have her take 20 MeQs PO daily over the next 2 days #. Suicide attempt - Will consult psychiatry once medically cleared. Anticipate this afternoon. - continue 1:1 sitter #. Psoriatic Arthritis - Holding home medications at this time #. Nicotine use disorder - Start nicotine patch #. Deconditioning -Activity as tolerated, PT/OT ordered. RESOLVED PROBLEMS: Salicylate elevation. Acute respiratory failure hyponatremia Diet: CLD DVT/GI prophylaxis: Heparin 5000mg SC TID/none indicated. Drips: none Code status: Full code. Disposition: Patient to be transferred out of ICU to med/surg floor, may be able to have psych consulted later today or tomorrow. VS, I&O, 24H, [facility] Vital Signs/I&O Vital Signs Date Time Temp Pulse Resp B/P (MAP) Pulse Ox O2 Delivery O2 Flow Rate FiO2 11/05/19 08:00 98.7 113 15 132/68 (89) 96 Room Air 11/05/19 03:46 21 I&O- Last 24 Hours up to 6 AM 11/05/19 05:59 Intake Total 3044 ml Output Total 3280 ml Balance -236 ml Laboratory Data 24H LABS Laboratory Tests 2 11/04/19 14:25: Magnesium Level 2.4 11/04/19 15:29: Bedside Glucose (Misc Panel) 116H 11/04/19 18:10: Magnesium Level 2.2 11/05/19 04:17: Magnesium Level 2.0, Nucleated Red Blood Cells % (auto) 0.0, Anion Gap 4L, Glomerular Filtration Rate > 60.0, Lactic Acid Level 1.4, Calcium Level 7.4L, Phosphorus Level 1.0L, Total Bilirubin 0.7, Aspartate Amino Transf (AST/SGOT) 12, Alanine Aminotransferase (ALT/SGPT) 12, Alkaline Phosphatase 40L, Total Protein 5.1L, Albumin 2.9L, Albumin/Globulin Ratio 1.32 11/05/19 05:45: Blood Gas Bicarbonate Standard 27.9H, Arterial Blood pH 7.500H, Arterial Blood Partial Pressure CO2 35.4, Arterial Blood Partial Pressure O2 74.7L, Arterial Blood Total CO2 28.1, Arterial Blood HCO3 27.0H, Arterial Blood Base Excess 3.9H, Arterial Blood Oxygen Saturation 95.6 CBC/BMP Laboratory Tests 11/04/19 14:25 11/04/19 18:10 11/05/19 04:17 GME ATTESTATION GME ATTESTATION My faculty preceptor for this patient encounter was physically present during the encounter and was fully available. All aspects of the patient interview, examination, medical decision making process, and medical care plan development were reviewed and approved by the faculty preceptor. The faculty preceptor is aware and concurs with the plan as stated in the body of this note and will attest to such by his/her cosignature. ATTENDING NOTE Patient seen and examined independently and with the resident. Agree with above as documented by the resident including history, physical, and assessment except as otherwise noted below. Patient is a 44-year-old female who was found unconscious after an apparent intentional overdose. Multiple medications taken including Robaxin, [place], amitriptyline who was found unresponsive by her this afternoon. She was successfully extubated yesterday afternoon. Overnight, she was agitated and hallucinating requiring Ativan. At this point, she is cooperative, awake, alert, and oriented. She appears dehydrated, but improved from yesterday. She continues to have a laterally abnormalities with mild hypokalemia, hypophosphatemia, which we will continue to replace. Would recommend continued monitoring overnight with repletion of electrolytes and IV fluid hydration. Anticipate tomorrow patient will be medically cleared for mental health evaluation and probable inpatient psych admission. Assessment 1. Intentional overdose 2. Hypophosphatemia 3. Acute hypoxic respiratory failure, resolved 4. Hypokalemia, improved 5. Clinical dehydration, improved 6. QTC prolongation, resolved 7. Hypo-magnesium, resolved 8. Hypocalcemia 9. Suicide ideation CODE STATUS: Full code. , who has been at bedside, surrogate decision maker. Dispo: Will downgrade to med/surg. Monitor electrolytes, continue to replete. Anticipate clearance to mental health tomorrow. Billin DUSTIN KAUR DO Nov 05, 2019 11:28 SAGRARIO CROOKS DO Nov 05, 2019 12:55
[2019-11-05 13:25] LABS: BLOOD UREA NITROGEN 3 MG/DL (7-18); CALCIUM LEVEL 8.3 MG/DL (8.5-10.1); CARBON DIOXIDE LEVEL 27 MEQ/L (21-32); CHLORIDE LEVEL 110 MEQ/L (98-107); GLOMERULAR FILTRATION RATE > 60.0 (>58); GLUCOSE, FASTING 92 MG/DL (70-100); PHOSPHORUS LEVEL 1.8 MG/DL (2.5-4.9); POTASSIUM SERUM 3.5 MEQ/L (3.5-5.1); SODIUM LEVEL 141 MEQ/L (136-145)
--- NOTE | 2019-11-05 16:31 | ECGEPIP ---
[facility] Test Date: 2019-11-05 Pat Name: PERCY AHUJA Department: Room: [place] [address] Gender: Female Health Safety Manager: MONSE : 1975 Requested By: DUSTIN KAUR Order Number: [id number] Reading MD: Angel Morse Measurements Intervals [place] Rate: 109 P: 67 CO: 171 QRS: -6 QRSD: 96 T: 50 QT: 334 QTc: 451 Interpretive Statements SINUS TACHYCARDIA Low voltage with poor precordial R wave progression - COPD versus body habitus Increased rate but otherwise unchanged from 11/04/19 Electronically Signed on 11-05-2019 16:31:31 EST by Angel Morse
[2019-11-06 06:00] VITALS: BP 160/95
[2019-11-06] MEDS: HEPARIN SOD (PORCINE) 5000 UNITS/ML VIAL (J1644 PER 1000UNITS) SC SCH ×3 (06:06→21:38)
[2019-11-06 06:29] LABS: ALBUMIN 2.7 GM/DL (3.2-5.2); BLOOD UREA NITROGEN 9 MG/DL (7-18); CALCIUM LEVEL 8.2 MG/DL (8.5-10.1); CARBON DIOXIDE LEVEL 28 MEQ/L (21-32); CHLORIDE LEVEL 111 MEQ/L (98-107); CREATININE FOR GFR 0.59 MG/DL (0.55-1.30); GLOMERULAR FILTRATION RATE > 60.0 (>58); GLUCOSE, FASTING 93 MG/DL (70-100); PHOSPHORUS LEVEL 3.1 MG/DL (2.5-4.9); POTASSIUM SERUM 3.9 MEQ/L (3.5-5.1); SODIUM LEVEL 143 MEQ/L (136-145)
--- NOTE | 2019-11-06 07:49 | REP ---
Portable chest x-ray: Single view. History: Intubated. Comparison study: November 05, 2019. Findings: There is no evidence of endotracheal tube placement. The lungs are well inflated and clear. The pleural angles are sharp. Heart size is normal. Pulmonary vasculature is not increased. Impression: No acute disease. Electronically Signed by Nabil Rivas MD 11/06/2019 07:41 A
[2019-11-06] MEDS: FOLIC ACID 1 MG TAB PO SCH (09:55)
[2019-11-06] MEDS: K-PHOS ORIGINAL (POT.ACID PHOSPHATE) 500MG TAB PO SCH ×3 (09:55→21:37)
[2019-11-06] MEDS: POTASSIUM CHLORIDE 10 MEQ SR TABLET PO SCH (09:55)
[2019-11-06 14:00] VITALS: BP 158/95
--- NOTE | 2019-11-06 17:34 | IPNPDOC ---
Subjective Date Seen The patient was seen on 11/06/19. Subjective Chief Complaint/HPI Kathi is alright today, she's c/o congestion, sitter and at bedside. Objective Physical Examination General Exam: Positive: Alert, No Acute Distress Eye Exam: Positive: PERRLA, EOMI; Negative: Sclera icteric ENT Exam: Positive: Atraumatic, Mucous membr. moist/pink, Pharynx Normal Neck Exam: Positive: Supple; Negative: JVD, thyromegaly Chest Exam: Positive: Clear to auscultation, Normal air movement Heart Exam: Positive: Rate Normal, Normal S1, Normal S2; Negative: Murmurs, Rubs Telemetry: Positive: No significant arrhythmia Abdomen Exam: Positive: Normal bowel sounds, Soft; Negative: Tenderness, Hepatospenomegaly Female Exam: Negative: Lesions, Discharge, Odor, Tenderness Extremity Exam: Positive: Normal pulses; Negative: Clubbing, Cyanosis, Edema Skin Exam: Positive: Nl turgor and temperature; Negative: Rash, Breakdown Neuro Exam: Positive: Normal Speech Psych Exam: Positive: Mental status NL, Mood NL, Oriented x 3 Assessment /Plan Assessment # Suicide attempt by Overdose # Hypophosphatemia # URI congestion Plan: - patient is medically cleared - consult psych in am, will need inpatient psych evaluation. - sudafed prn Plan/VTE VTE Prophylaxis Ordered?: Yes VS, I&O, 24H, Fishbone Vital Signs/I&O Vital Signs Date Time Temp Pulse Resp B/P (MAP) Pulse Ox O2 Delivery O2 Flow Rate FiO2 11/06/19 14:00 98.0 114 18 158/95 (116) 96 Room Air 11/05/19 03:46 21 I&O- Last 24 Hours up to 6 AM 11/06/19 06:00 Intake Total 1576 ml Output Total 650 ml Balance 926 ml Laboratory Data 24H LABS Laboratory Tests 2 11/06/19 05:35: Anion Gap 4L, Glomerular Filtration Rate > 60.0, Calcium Level 8.2L, Phosphorus Level 3.1#, Albumin 2.7L CBC/BMP Laboratory Tests 11/06/19 05:35 ANDRAE VIDAL MD Nov 06, 2019 17:34
[2019-11-06 22:00] VITALS: BP 155/93
[2019-11-06] MEDS: PSEUDOEPHEDRINE 30 MG TAB PO PRN (23:49)
[2019-11-07] MEDS: HEPARIN SOD (PORCINE) 5000 UNITS/ML VIAL (J1644 PER 1000UNITS) SC SCH ×2 (05:44→14:48)
[2019-11-07 06:00] VITALS: BP 151/92
--- NOTE | 2019-11-07 07:37 | REP ---
Portable chest, 06:40 a.m., single AP view with the patient sitting: Comparison is 11/06/2019. The lung rutledge are clear. The cardiac size is normal. The musa, mediastinum, and skeletal structures are unremarkable. Impression: Negative portable chest. There is no interval change. Electronically Signed by Papito Ornelas MD 11/07/2019 07:29 A
[2019-11-07] MEDS: FOLIC ACID 1 MG TAB PO SCH (09:52)
--- NOTE | 2019-11-07 12:03 | IPNPDOC ---
Subjective Date Seen The patient was seen on 11/07/19. Subjective Chief Complaint/HPI Sudafed helping with congestion, slept a little overnight. Appetite ok, no other complaints Objective Physical Examination General Exam: Positive: Alert, No Acute Distress Eye Exam: Positive: PERRLA, EOMI; Negative: Sclera icteric ENT Exam: Positive: Atraumatic, Mucous membr. moist/pink, Pharynx Normal Neck Exam: Positive: Supple; Negative: JVD, thyromegaly Chest Exam: Positive: Clear to auscultation, Normal air movement Heart Exam: Positive: Rate Normal, Normal S1, Normal S2; Negative: Murmurs, Rubs Telemetry: Positive: No significant arrhythmia Abdomen Exam: Positive: Normal bowel sounds, Soft; Negative: Tenderness, Hepatospenomegaly Female Exam: Negative: Lesions, Discharge, Odor, Tenderness Extremity Exam: Positive: Normal pulses; Negative: Clubbing, Cyanosis, Edema Skin Exam: Positive: Nl turgor and temperature; Negative: Rash, Breakdown Neuro Exam: Positive: Normal Speech Psych Exam: Positive: Mental status NL, Mood NL, Oriented x 3 Assessment /Plan Assessment # Suicide attempt by Overdose # Hypophosphatemia - resolved # URI congestion Plan: - patient is medically cleared - Dr. Hernandez to see this evening, likely discharge to psych inpt when bed available. - sudafed prn Plan/VTE VTE Prophylaxis Ordered?: Yes VS, I&O, 24H, Fishbone Vital Signs/I&O Vital Signs Date Time Temp Pulse Resp B/P (MAP) Pulse Ox O2 Delivery O2 Flow Rate FiO2 11/07/19 06:00 97.9 100 18 151/92 (111) 94 Room Air 11/05/19 03:46 21 I&O- Last 24 Hours up to 6 AM 11/07/19 06:00 Intake Total 760 ml Output Total 550 ml Balance 210 ml ANDRAE VIDAL MD Nov 07, 2019 12:03
[2019-11-07 14:00] VITALS: BP 150/91
[2019-11-07] MEDS: PSEUDOEPHEDRINE 30 MG TAB PO PRN (14:48)
--- NOTE | 2019-11-07 22:23 | MHCR ---
DATE OF CONSULTATION: 11/07/2019 VITAL SIGNS: Blood pressure 151/92, pulse 100, temperature 97.9. CHIEF COMPLAINT: Had taken an overdose. She is 44 years old, , has a couple of children, who are in [place] in college. She is here with her , who works locally. She has been living in [place] with her , he moved up here last year for work, and she followed about 5 months ago. She has no prior psychiatric history as such, and I was called in to see her by the hospitalist, as she had come in after taking a substantial overdose and had left suicide notes, apparently. It should be noted, the history is obtained from the patient, she does not have much recollection about the circumstances prior to coming to the hospital, as well as from the emergency room record. She says that she has thought that she had been feeling well and now suggests that she may not have "recognized the signs," these are her words, particularly more lately. When asked to expand on that, says felt well over and the early part of September, but possibly for the last month or so has not been feeling well, though is vague on this. Does not think that she has felt depressed, but acknowledges has felt somewhat hopeless and not quite herself the last few weeks, but could not pinpoint any major stressors other than trying to settle in this area when the family is away, her children, whom she misses, and her friends. Says she and her have attempted attending a couple of functions, which are related to his work, she says that she generally tends to keep to herself. Enjoys being with family, being with her dogs, vague on whether she has noticed any change in desire in engaging in those activities lately. Does say had not felt quite herself, but again vague on this. Also says that sleep has been disrupted, particularly over the last few weeks, difficulty getting to sleep and remaining asleep, at times takes naps, but they do not refresh her. Her focus has been impacted as well. Appetite has tended to vary. She denies that she has felt suicidal prior to the overdose, however. Says remembers being in bed at home, the next thing she remembers is waking up in the hospital with family around her. Per the emergency room record, apparently her had come home and found her unresponsive, called the ambulance. She was brought here, was intubated, was in the intensive care unit (ICU) for a couple of days, and then extubated. Does not remember any of that, but remembers today clearly and yesterday as well, for the most part at any rate. Says she knows that she took some pills that belonged to her . The emergency room note suggests that she had taken Robaxin, hydrocodone, amitriptyline. When the called 911, he was asked to start cardiopulmonary resuscitation (CPR), which was continued by police, apparently. She was given Narcan, several doses, no response initially. Urine toxicology was positive for opiates, apparently. also suggests, per the emergency room, that she had not been quite herself lately and was concerned about a FASFA application that they made, some discrepancies there, but eventually that was successful, and afterwards she began suspecting the IRS may be after them and that they would kick their door down and that they were spying on them. She is treated for psoriatic arthritis and about mid September was placed on sulfasalazine, apparently, in addition to Humira, which she has been on for a while. She was treated for that in [place], which is where she moved from, and was on methotrexate prior to that. Says that was combined with Humira, she felt very well on that and when she moved here, Humira was continued. She had seen a specialist in [place], who had suggested sulfasalazine. She suggests that this was started about a month ago and has not had a followup with the hired hand in [place], and this also seems to have coincided somewhat with the symptoms that she has described above, in terms of changes in her mood as well. PAST PSYCHIATRIC HISTORY: None formally. No history of suicide attempts nor inpatient hospitalizations. She says that she has not been treated for depression nor anxiety or any other emotional difficulties. FAMILY PSYCHIATRIC HISTORY: She says that she suspects both of her parents are on medicines for emotional reasons but she does not know the details. No known family history of any suicide attempts. SUBSTANCE ABUSE HISTORY: None significantly. MEDICAL HISTORY: Says is treated for psoriasis, as well as psoriatic arthritis. Has used methotrexate in the past, as stated previously, and then says felt quite better when that was combined with Humira. When she moved here the patient was on Humira apparently and sulfasalazine was started a month ago. REVIEW OF PSYCHIATRIC SYSTEMS: No history consistent with hypomania nor spenser, as far as I can tell. No posttraumatic stress disorder (PTSD). SOCIAL HISTORY: She is . She has two children, they are in [place], which is where she moved from a few months ago. She says that she is originally from [place] and has tended to hold the family together, particularly when the was away. He was in the and now works at a different job. She says that she has tended to do everything with keeping the family together when the is away. SHe also indicates others tend to confide in her with their problems rather than the other way around. Says moved here a few months ago, has been trying to adjust, says that has been a challenge at times, as it is a new place. Does not have any acquaintances or friends and says that she generally tends to keep to herself. Has a close friend who is out of state. She says that she talks to her and is in regular touch with her family, her parents. MENTAL STATUS EXAMINATION: She is sitting up in bed. She is neat. She is cooperative. There is no agitation. No psychomotor retardation. No abnormal movements noted. She is coherent. Affect displays fair range. Denies any thoughts of harming herself at present. No homicidal ideas or intents. Currently no evidence of psychosis. Does not appear to be internally preoccupied. No paranoid ideations elicited. She is alert, oriented to time, place and person. Attention is good, as is concentration. Intellect is average. Judgment and insight are questionable. ASSESSMENT: 1. Unspecified depressive disorder. 2. Rule out adjustment disorder with depressed mood. The possibility of depression with psychosis also needs to be considered. The timing of sulfasalazine with some of the changes in her symptoms also needs to be taken into consideration. She is possibly depressed, has felt hopeless, helpless and had written suicide notes. Also, per the emergency room, 's report that she may have been paranoid. Unclear in terms of overt stressors, moved to this area about 5 months ago and has limited supports locally. Her parents and friends are in [place]. Her parents have visited her in the hospital. No prior history of such. RECOMMENDATIONS: She needs inpatient psychiatric hospitalization for further evaluation and stabilization when she is fully medically cleared and the hospitalist informs me that she is. I have spoken with the inpatient mental health unit and I am told that there will be a bed for her. Thank you for the consultation. If you have any questions, please call. I discussed the above with the hospitalist, Dr. Fall. The assessment took 30 minutes.
--- NOTE | 2019-11-10 13:24 | DSES ---
DATE OF ADMISSION: 11/03/2019 DATE OF DISCHARGE: 11/07/2019 ADMITTING PHYSICIAN: Dr. Pemberton DISCHARGING PHYSICIAN: Dr. Fall DISCHARGE DIAGNOSIS: Are the followin. Multidrug overdose. 2. Acute respiratory failure. 3. Elevated salicylate level. 4. Hypokalemia. 5. Hyponatremia. 6. Suicide attempt. 7. History of psoriatic arthritis. PROCEDURES PERFORMED DURING THIS HOSPITALIZATION: Were mechanical endotracheal intubation and subsequent extubation. CONSULTANTS ON THE CASE: Were the hospitalist service and Dr. Vega of psychiatry. DISPOSITION: The patient is charged to inpatient psychiatry. Followup laboratories at the time of discharge. DISCHARGE INSTRUCTIONS: The patient is to followup with her primary care provider, as well as her overhead crane operator, upon discharge from inpatient psychiatry. CONDITION AT DISCHARGE: Stable. RELEVANT LABORATORIES: Are the following: White blood cell count is 8.8, hemoglobin 11.2, hematocrit 31.9, platelet counts are 160,000. Sodium is 143, potassium 3.9, chloride 111, bicarbonate is 28, anion gap is 4, BUN is 9, creatinine 0.59, calcium is 8.2, phosphorus is 3.1, albumin is 2.7, magnesium is 2.2, TSH is 4.98. Urine screen is positive for opioids. Acetaminophen level of 30.9 with subsequent rechecks indicating decreased salicylates was 6.6. Urine drug screen was unremarkable. IMAGING STUDIES: CT scan of the head without contrast showed no acute pathology. Chest x-ray showed proper endotracheal position with mildly distended stomach with no evidence of any intrapulmonary disease. DISCHARGE MEDICATIONS: Are: - Humira 40 mg subcutaneous every 2 weeks - metronidazole cream apply topically daily The patient's sulfasalazine is discontinued. HOSPITAL COURSE: Ms. Garcia is a 44-year-old woman who has a history of psoriatic arthritis who recently had been started on sulfasalazine 2 months ago. Since that time, she has had increasing depressive symptoms. On the day of admission, the patient was at home, and her had been trying to reach her. He was unsuccessful, so he subsequently went home and found her unresponsive with multiple suicide notes. She was brought to the emergency room (ER) department, where she was intubated to protect her airway. The patient underwent a CT scan of her head, which was unremarkable. Chest x-ray showed proper placement of the endotracheal tube. Poison control was contacted, as the patient had ingested varying amounts of robaxin, hydrocodone, and amitriptyline. She was treated with Narcan with no improvement in her condition prior to intubation. The patient was admitted to the intensive care unit (ICU) under the care of Dr. Pemberton. She was maintained on mechanical ventilation overnight. As her mentation improved, she was subsequently extubated. She had some electrolyte abnormalities consisting of hyponatremia and hypophosphatemia that required correction before she could be cleared for discharge. She was subsequently transferred to the floor under the care of the hospitalist team. The patient was ultimately medically cleared. Dr. Vega of psychiatry was consulted, and the patient was subsequently discharged to inpatient psychiatry. Her sulfasalazine was discontinued, as there may be a possibility that this could have triggered her severe depression and suicide attempt. A total of 30 minutes was spent in completing all discharge paperwork.
== END 2019-11-07 18:00 | DRG 917 ==
LOC: M ED 15:38 → M ED INP 18:25 → ENRESERVTM 18:58 → ENRESERVDT 18:58 → M ICU 20:07 → M MSPAV 11-05 13:15
PROVIDERS: ADMIT Internal Medicine; ATTEND Internal Medicine
PROC: 5A1945Z Respiratory Ventilation, 24-96 Consecutive Hours (ICD-10-PCS; principal; 2019-11-04)
DX: T39.1X2A Poisoning by 4-Aminophenol derivatives, intentional self-harm, initial encounter (principal); J96.00 Acute respiratory failure, unspecified whether with hypoxia or hypercapnia; E87.1 Hypo-osmolality and hyponatremia; T14.91XA Suicide attempt, initial encounter; E87.6 Hypokalemia; T40.2X2A Poisoning by other opioids, intentional self-harm, initial encounter; L40.50 Arthropathic psoriasis, unspecified

== ENCOUNTER 2019-11-07 16:56 | Inpatient (IN) | payer OTHER ==
[~2019-11-07] VITALS: Ht 149.9 cm; Wt 55.9 kg
[2019-11-07] MEDS: NICOTINE 14 MG/24 HR TRANSDERMAL TD SCH (09:00)
[2019-11-07] MEDS: FOLIC ACID 1 MG TAB PO SCH (09:00)
[~2019-11-07 16:56] MED LIST changes: -CALCIUM GLUCONATE 1,000 MG in D5W MINI-BAG PLUS 100 ML IV ONE; +HUMI40KI SC; +MED REC COMMENT; +METRCRM TOP; +SULF1TAB30 PO
[2019-11-07] MEDS ORDERED: MOM 30ML SUSPENSION UDC PO PRN (17:15)
[2019-11-07] MEDS ORDERED: traZODone 50 MG TAB PO PRN (17:15)
[2019-11-07] MEDS ORDERED: MAALOX 30 ML SUSP *UDC PO PRN (17:15)
[2019-11-07] MEDS ORDERED: PSEUDOEPHEDRINE 30 MG TAB PO PRN (17:15)
[2019-11-07 18:49] VITALS: BP 164/83
[2019-11-08 06:35] VITALS: BP 145/67
[2019-11-08] MEDS: NICOTINE 14 MG/24 HR TRANSDERMAL TD SCH (09:00)
[2019-11-08] MEDS: FOLIC ACID 1 MG TAB PO SCH (09:59)
[2019-11-08 16:10] VITALS: BP 143/75
[2019-11-08] MEDS ORDERED: guaiFENesin SYRUP 200 MG/10 ML UDC PO PRN (22:00)
[2019-11-09 06:31] VITALS: BP 147/67
[2019-11-09] MEDS: NICOTINE 14 MG/24 HR TRANSDERMAL TD SCH (09:00)
[2019-11-09] MEDS: FOLIC ACID 1 MG TAB PO SCH (09:45)
[2019-11-09 16:04] VITALS: BP 140/84
--- NOTE | 2019-11-09 20:39 | MHHPE ---
DATE OF ADMISSION: 11/07/2019 VITAL SIGNS: Blood pressure 143/75, pulse 86, temperature 97.8. CHIEF COMPLAINT: Feels better. SUBJECTIVE: She is 44 years old. She is . She was admitted here to the inpatient psychiatric unit from the medical/surgical floor where I had seen her yesterday on the consultation service. She had been admitted there after she had taken a substantial overdose and was found essentially unresponsive by her . Please refer to my consultation summary for details related to the circumstances of the patient's admission. She was in the intensive care unit (ICU) for a couple of days, was intubated, and then stabilized. She had not had the symptoms that she has described for any more than a few weeks, they had apparently started after she had started sulfasalazine for psoriatic arthritis. It has been thought that the sulfasalazine may have contributed to her symptoms, she indicates that the hospitalist will inform the fixed income trading vice president that she sees in [place] about this as well, and that the recommendation is that she not resume the sulfasalazine. She says that she had filled the FASFA application for one of her children, and she thinks that this was after she started the sulfasalazine as well, and then had doubts as she was filling it out in [place], had moved to [place], she was worried as to whether that would be considered to be filling it out inaccurately, but she felt that it was accurate since she was still in [place] and that is where her children are. She then began worrying that she would get into trouble with the IRS, says she panicked and that she was overly worrying. She says again this was out of character for her. Staff had spoken with her , who essentially corroborates the history, and suggested that this was not in keeping with the patient's general functioning. She says that her brother, who is a physician in [place], had visited while she was here in the hospital, and had spoken with the attending about this as well. PAST PSYCHIATRIC HISTORY: None formally. MEDICAL HISTORY: Has psoriasis, psoriatic arthritis and is treated for that. Please refer to the previous summary when seen on the consult service for details. SOCIAL HISTORY: Please refer to the consult summary. MENTAL STATUS EXAMINATION: She is neat. She is cooperative. There is no agitation. No psychomotor retardation. She is coherent. Affect is fairly broad. Denies any thoughts of harming herself or anyone else. No homicidal ideas or intents. She does not appear internally preoccupied. No paranoid ideations elicited. Cognition is grossly intact. She is alert and oriented to time, place and person. Judgment and insight are possibly improved. Intellect is average. ASSESSMENT: 1. Unspecified depressive disorder. 2. The possibility of medication induced depressive disorder is to be considered, as the timing seem to be associated with that, the start of the sulfasalazine, with depressive symptoms and being overly suspicious, possibly paranoid. PLAN: She is admitted to the inpatient psychiatry unit and placed on relevant precautions. We will look at obtaining further collateral information. We will involve her individual, group and milieu therapy. She is being followed by the Department of Medicine, the hospitalist, and that is appreciated. I would suggest holding off on any psychotropics, there is no firm indication for using them, particularly given the events discussed above, the timings. It is preferable to observe her, and monitor for symptoms rather than starting antidepressant. As discussed above, I would suggest that she now use any sulfasalazine and alternatives are looked for. Her fixed income trading vice president will need to be informed. She will be discharged with followup once she is stable. I would anticipate a short stay. Further recommendations will be made depending on the clinical picture. The assessment took 30 minutes. edited: 11/12/2019 1348 tkf FLORINA
--- NOTE | 2019-11-09 20:50 | HPE ---
DATE OF ADMISSION: 11/07/2019 REASON FOR CONSULTATION: Medical evaluation of inpatient psychiatric patient. HISTORY OF PRESENT ILLNESS: Kathi is a 44-year-old woman known to me from recent hospitalization. She has a history of psoriatic arthritis started on sulfasalazine approximately 2 months ago. Since that time, she has developed worsening depression often and leading to suicide attempt by polydrug overdose. She was subsequently brought to the emergency room where she was found to be unresponsive. She was intubated to protect her airway, admitted to the intensive care unit (ICU), subsequently extubated, found to have electrolyte abnormalities which were corrected and then once she was medically cleared she was discharged to inpatient psychiatry. Today, she is seen for medical evaluation. She is doing well. She is not complaining of any medical issues other than a cough or congestion, which is being treated with Sudafed, is improved. ALLERGIES: No known drug allergies. HOME MEDICATIONS: Are the following: - Humira - metronidazole cream - sulfasalazine PAST MEDICAL HISTORY: Notable for: 1. Psoriatic arthritis. 2. Suicide attempt by polydrug overdose, possibly secondary to toxic effects of sulfasalazine. 3. Depression. PAST SURGICAL HISTORY: Nil. SOCIAL HISTORY: Patient is , lives with her . She does not use alcohol, tobacco, or illicit drugs. FAMILY HISTORY: Not relevant for depression or previous suicide attempt in her family members. REVIEW OF SYSTEMS: All systems reviewed, the patient is otherwise negative. On examination, the patient's temperature is 98.8, pulse is 86, respiratory rate of 16, blood pressure 143/75. General: Patient is alert and oriented times three, she appears to be in no acute distress. Head is atraumatic, normocephalic. Pupils are symmetric bilaterally. Oropharynx is clear. Neck is supple. Lung sounds are present without rales, wheezes, or rhonchi Heart: S1, S2. No murmurs, rubs, or gallops. Abdomen: Soft, nontender, nondistended with active bowel sounds. Neurologic: Cranial nerves II-XII are grossly intact without any focal neurologic deficits. RELEVANT LABORATORIES: Are the following: White blood cell count is 8.8, hemoglobin 11.2, hematocrit 31.9, platelet count 160, sodium 143, potassium 3.9, chloride 111, bicarbonate 28, BUN 9, creatinine 0.59, lactic acid 1.4, phosphorous 3.1, alkaline phosphatase 40, CPK 64, TSH 4.98. Urine drug screen was positive for opiates. Urine drug screen was unremarkable. IMPRESSION: 1. Major depression with suicide attempt, possibly triggered by adverse reaction to sulfasalazine as her symptoms coincided with the introduction of sulfasalazine by her intensive care ambulance paramedic. 2. Psoriatic arthritis. RECOMMENDATIONS: I have discontinued her sulfasalazine. Patient has been instructed to followup with her intensive care ambulance paramedic for further treatment and consideration of different medications to manage her rheumatologic condition. Otherwise, patient is medically stable. I will add Robitussin for her cough. She can continue on the Sudafed. Remainder of psychiatric treatment per the psychiatric team. Thank you for allowing us to participate in the care of this patient. We will sign off now.
[2019-11-10 06:28] VITALS: BP 100/62
[2019-11-10] MEDS: NICOTINE 14 MG/24 HR TRANSDERMAL TD SCH (09:00)
[2019-11-10] MEDS: FOLIC ACID 1 MG TAB PO SCH (09:03)
--- NOTE | 2019-11-10 10:26 | MHIPNPDOC ---
[facility] Progress Note Progress Note Inpatient Progress Note Kathi Alejandro MRN: N/A Date of : N/A Date of Service: 11/10/2019 History of Present Illness The patient, a 44-year-old woman, presents after overdosing on medication, she has had major behavioral changes and unusual depression since starting sulfasalazine a month ago. Interval History Narrative: The patient is met with today. She reports she is doing quite well and that she feels the sulfasalazine, now being stopped has returned her mood to normal. Affective: Denies any symptoms. Psychotic: Denies any symptoms. Anxiety: Denies any symptoms. Eating and sleeping behaviors: Within normal limits. Group Attendance: Frequent. Medication Side effects: See ROS below Behavioral problems/significant events overnight: None. Staff Report: Friendly and amenable with no behavior problems. Review Of Systems General: Denies fever or appetite changes Cardiovascular: Denies Chest pain or palpations GI: Denies Nausea, vomiting, or bowel changes Respiratory: Denies shortness of breath or cough Neuro: Denies dizziness, tremors Derm: Denies any rashes or pruritus : Denies any dysuria or urinary problems MSK: Denies any muscle tightness or stiffness HEENT: Denies any vision changes or headaches Psychotherapy None on this visit. Vital Signs Reviewed. Mental Status Examination General: Well dressed with good hygiene Speech: Spontaneous and fluid Thought processes: Linear and logical MSK: Smooth and coordinated gait, no signs of tremors or involuntary orofacial movements Thought content: Future orientated Abstract reasoning, and computation: Intact Description of associations: Intact Description of abnormal or psychotic thoughts: Denies any suicidal or homicidal ideation. Denies any auditory or visual hallucinations. Does not appear to be responding to internal stimuli. Does not appear to be endorsing any bizarre or paranoid ideation. Judgment: fair Insight: fair Orientation: Alert and orientated 3 Cognition: Grossly normal Recent and remote memory: Intact Attention span and concentration: Intact Fund of knowledge: Adequate Mood: "okay" Affect: Euthymic with a full range Diagnoses Unspecified depressive disorder. Likely substance induced/medical related. Assessment and Plan Unspecified depressive disorder: Discussed with patient, she has no depressive symptoms at this time, discussed risks and benefits of treatment as well as lack of treatment. Patient elects for no antidepressant at this time. Disposition Discharge tomorrow, patient stable. Time Spent 15 minutes Sunday Vital Signs Vital Signs Date Time Temp Pulse Resp B/P (MAP) Pulse Ox O2 Delivery O2 Flow Rate FiO2 11/10/19 06:28 99.2 106 16 100/62 (75) Room Air Current Medications Current Medications Medications (Trade) Dose Ordered Sig/Dana Route PRN Reason Start Time Stop Time Status Last Admin Dose Admin Al Hydrox/Mg Hydrox/Simethicone (Mylanta) 30 ml Q4HP PRN PO HEARTBURN/INDIGESTION 11/07/19 17:15 Folic Acid (Folic Acid) 1 mg DAILY PO 11/07/19 09:00 11/10/19 09:03 Guaifenesin (Robitussin) 10 ml Q6HP PRN PO COUGH 11/08/19 22:00 Magnesium Hydroxide (Milk Of Magnesia) 30 ml DAILYPRN PRN PO CONSTIPATION 11/07/19 17:15 Nicotine (Nicoderm Cq 14mg) 1 patch DAILY TD 11/07/19 09:00 Pseudoephedrine HCl (Sudafed) 30 mg Q6HP PRN PO CONGESTION 11/07/19 17:15 Trazodone HCl (Desyrel) 50 mg QHSP PRN PO INSOMNIA 11/07/19 17:15 Allergies Coded Allergies: No Known Allergies (Verified Allergy, Unknown, 11/03/19) LU JHA DO Nov 10, 2019 10:26
--- NOTE | 2019-11-10 14:01 | MHIPN ---
DATE: 11/09/2019 VITAL SIGNS: Blood pressure 147/67. Pulse 102. Temperature 98.6. CHIEF COMPLAINT: Says feels okay. SUBJECTIVE: Seen for followup in the presence of staff. Says feels okay, has difficult time with sleep. Suggests it is because of her roommate. Moods have been good, no major anxieties, says visits with her has gone well. She does not want to disturb her children, but they are aware that she is here, they are in [place]. Appetite has been okay, as is focus. MENTAL STATUS EXAMINATION: Neat and cooperative. No agitation. No psychomotor retardation. She is coherent. Affect is reactive, fairly broad. She denies any suicidal thoughts or intents. No homicidal ideas or intents. No evidence of any psychosis. Cognition grossly intact. Judgment is good. Insight is fair. ASSESSMENT: Unspecified depressive disorder. Consider sulfasalazine induced mood disorder. Feels better, no convincing symptoms at present indicative of depression, nor of chronic anxiety. PLAN: Continue current observations. I would not advise starting her on a scheduled psychotropic. Should improvements continue, consider discharge, with followup. She will be seeing the assigned psychiatrist tomorrow, as well as, the treatment team. Meanwhile, she is to be encouraged to participate in activities on the unit. The patient's retail sales lead also has to be informed about the events of the last few days. The patient is confident that she will be.
[2019-11-10 16:16] VITALS: BP 140/86
[2019-11-11 06:26] VITALS: BP 116/71
[2019-11-11] MEDS: NICOTINE 14 MG/24 HR TRANSDERMAL TD SCH (08:25)
[2019-11-11] MEDS: FOLIC ACID 1 MG TAB PO SCH (08:26)
[2019-11-11] MEDS ORDERED: NICO14PA TD (10:49)
--- NOTE | 2019-11-11 10:53 | MHDSPDOC ---
[facility] Discharge Summary Discharge Summary DATE OF ADMISSION: Nov 07, 2019 at 18:00 DATE OF DISCHARGE: 11/11/19 Discharge Kathi Alejandro MRN: N/A Date of : N/A Date of Service: 11/11/2019 Diagnoses Unspecified depressive disorder. Likely substance induced/medical related. History of Present Illness The patient, a 44-year-old woman, presents after overdosing on medication, she has had major behavioral changes and unusual depression since starting sulfasalazine a month ago. Consultants Involved Hospitalist/PCP screening Treatment and Progress On The Unit The patient was admitted to the inpatient mental health unit and observed due to the concerns of sulfasalazine causing her depressive and unusual behaviors. She was admitted and observed for 48 hours, where she had no signs or symptoms of depression, she did well on the unit with no behavioral problems and had requested discharge. She was met with and discussed about the options available to her, however, she elected to continue with her regular treatment and had reported that in general her symptoms have only begun when she had started on t he sulfasalazine. Discharge Assessment 44-year-old woman with a history of rheumatoid condition, presents with unusual behavior and overdose after a month of sulfasalazine treatment. The patient at the time of discharge did not meet criteria for involuntary admission/extension due to having a normal mental status exam, fair insight into the situation, They are engaged in the discharge process, as well as being friendly and amenable in behavioral control and havent been engaging in any observed concerning behavior or ideation recently. They decline voluntary extension/admission at this time and must be discharged in good sachi, as Im unable to make a case for holding the patient against their will. They may have historical risk factors of admissions and other interactions with psychiatry however, those are not modifiable from a clinical perspective. The patient will need to be discharged in good sachi. Mental Status Examination General: Well dressed with good hygiene Speech: Spontaneous and fluid Thought processes: Linear and logical MSK: Smooth and coordinated gait, no signs of tremors or involuntary orofacial movements Thought content: Future orientated Abstract reasoning, and computation: Intact Description of associations: Intact Description of abnormal or psychotic thoughts: Denies any suicidal or homicidal ideation. Denies any auditory or visual hallucinations. Does not appear to be responding to internal stimuli. Does not appear to be endorsing any bizarre or paranoid ideation. Judgment: fair Insight: fair Orientation: Alert and orientated 3 Cognition: Grossly normal Recent and remote memory: Intact Attention span and concentration: Intact Fund of knowledge: Adequate Mood: "okay" Affect: Euthymic with a full range Follow Up The social work team worked during the predischarge meeting in order to evaluate for further issues of lethality address them fully before discharge. They worked on safety planning with the patient's family members in order to ensure that the patient will have a safe and effective discharge. Time Spent The amount of time spent in the coordination of care for this patient was approximately 40 minutes. Sunday Vital Signs/I&Os Vital Signs Date Time Temp Pulse Resp B/P (MAP) Pulse Ox O2 Delivery O2 Flow Rate FiO2 11/11/19 06:26 99.1 99 12 116/71 (86) Room Air Medications Scheduled Adalimumab (Humira) 40 Mg/0.8 Ml Syringekit, 40 MG SC Q2WK, (Reported) Metronidazole (Metronidazole) 45 Gm Cream..g., 1 APLCT TOP DAILY, (Reported) APPLY TO CHEEKS/CHIN AND TEMPLES DAILY Nicotine (Nicotine Patch) 14 Mg Patch.td24, 1 PATCH TD DAILY for tobacco for 30 Days, #30 Miscellaneous Medications [Med Rec Comment] , (Reported) OBTAINED LIST FROM [facility]. STATED PT TAKES METHOTREXATE BUT NOT FILLED WITH THE PHARMACY. Allergies Coded Allergies: No Known Allergies (Verified Allergy, Unknown, 11/03/19) LU JHA DO Nov 11, 2019 10:53
== END 2019-11-11 12:52 | disposition home or self-care (01) | DRG 881 ==
LOC: M PSY 18:00
PROVIDERS: ADMIT Psychiatry & Neurology Psychiatry; ATTEND Psychiatry & Neurology Addiction Medicine
DX: F32.9 Major depressive disorder, single episode, unspecified (principal); T37.0X5A Adverse effect of sulfonamides, initial encounter; Z79.899 Other long term (current) drug therapy; Z91.5 Personal history of self-harm; L40.50 Arthropathic psoriasis, unspecified

== ENCOUNTER → 2019-11-26 | Outpatient (REF) | payer OTHER ==
[~2019-11-26] MED LIST changes: +NICO14PA TD
[2019-11-26 11:31] LABS: FREE T4 1.44 NG/DL (0.76-1.46); THYROID STIMULATING HORMONE 1.56 uIU/ML (0.358-3.740)
== END ==
LOC: M SFHCPLAZ 09:28
PROVIDERS: ATTEND Family Medicine
DX: R94.6 Abnormal results of thyroid function studies (principal)
CPT/HCPCS: 36415; 84439; 84443; G0463

== ENCOUNTER → 2019-12-17 | Outpatient (REF) | payer OTHER | LOC: M SFHCPLAZ 09:24 | PROVIDERS: ATTEND Family Medicine | DX: R63.4 Abnormal weight loss (principal); E07.81 Sick-euthyroid syndrome; F17.200 Nicotine dependence, unspecified, uncomplicated ==

== ENCOUNTER → 2019-12-22 | Outpatient (REF) | payer OTHER ==
[2019-12-22 11:20] LABS: BASO % 0.4 % (0.0-1.0); EOS # 0.1 10^3/uL (0.0-0.5); EOS % 1.8 % (0.0-3.0); HEMATOCRIT 43.6 % (36.0-47.0); HEMOGLOBIN 14.9 g/dl (12.0-15.5); LYMPH # 1.9 10^3/uL (1.5-5.0); LYMPH % 38.7 % (24.0-44.0); MEAN CORPUSCULAR HEMOGLOBIN 31.7 pg (27.0-33.0); MEAN CORPUSCULAR HGB CONC 34.2 g/dl (32.0-36.5); MEAN CORPUSCULAR VOLUME 92.8 fl (80.0-96.0); MONO # 0.4 10^3/uL (0.0-0.8); MONO % 7.1 % (0.0-5.0); NEUTROPHILS # 2.6 10^3/uL (1.5-8.5); NEUTROPHILS % 51.8 % (36.0-66.0); PLATELET COUNT, AUTOMATED 276 10^3/uL (150-450); WHITE BLOOD COUNT 4.9 10^3/uL (4.0-10.0)
[2019-12-22 11:44] LABS: ALT/SGPT 13 U/L (12-78); BILIRUBIN,TOTAL 1.6 MG/DL (0.2-1.0); BLOOD UREA NITROGEN 12 MG/DL (7-18); CALCIUM LEVEL 9.3 MG/DL (8.5-10.1); CARBON DIOXIDE LEVEL 29 MEQ/L (21-32); CHLORIDE LEVEL 106 MEQ/L (98-107); GLOMERULAR FILTRATION RATE > 60.0 (>58); GLUCOSE, FASTING 95 MG/DL (70-100); SODIUM LEVEL 139 MEQ/L (136-145); TOTAL PROTEIN 6.4 GM/DL (6.4-8.2)
[2019-12-22 12:34] LABS: HIV 1&2 SCREEN CENTAUR NEGATIVE (NEGATIVE)
== END ==
LOC: M SFHCPLAZ 09:38
PROVIDERS: ATTEND Family Medicine
DX: R63.4 Abnormal weight loss (principal)

== ENCOUNTER 2020-02-04 11:06 | Inpatient (IN) | payer OTHER ==
[~2020-02-04] VITALS: Ht 172.7 cm; Wt 44.8 kg
[2020-02-04 12:04] LABS: HEMATOCRIT 42.3 % (36.0-47.0); HEMOGLOBIN 14.8 g/dl (12.0-15.5); MEAN CORPUSCULAR HEMOGLOBIN 31.7 pg (27.0-33.0); MEAN CORPUSCULAR VOLUME 90.6 fl (80.0-96.0); PLATELET COUNT, AUTOMATED 274 10^3/uL (150-450); RED BLOOD COUNT 4.67 10^6/uL (4.00-5.40); WHITE BLOOD COUNT 6.1 10^3/uL (4.0-10.0)
[2020-02-04 12:31] LABS: HCG, SERUM QUALITATIVE NEGATIVE (NEGATIVE)
[2020-02-04 12:39] LABS: AMPHETAMINES LEVEL URINE NEGATIVE (NEGATIVE); BARBITURATES URINE NEGATIVE (NEGATIVE); BENZODIAZEPINES URINE NEGATIVE (NEGATIVE); CANNABINOIDS URINE NEGATIVE (NEGATIVE); COCAINE METABOLITE URINE NEGATIVE (NEGATIVE); METHADONE URINE NEGATIVE (NEGATIVE); OPIATES URINE NEGATIVE (NEGATIVE); PHENCYCLIDINE URINE NEGATIVE (NEGATIVE)
[2020-02-04 12:41] LABS: ACETAMINOPHEN LEVEL < 2.0 UG/ML (10.0-30.0); ALBUMIN 3.9 GM/DL (3.2-5.2); ALT/SGPT 20 U/L (12-78); BILIRUBIN,DIRECT 0.3 MG/DL (0.0-0.2); BILIRUBIN,TOTAL 1.2 MG/DL (0.2-1.0); BLOOD UREA NITROGEN 13 MG/DL (7-18); CALCIUM LEVEL 9.1 MG/DL (8.5-10.1); CARBON DIOXIDE LEVEL 29 MEQ/L (21-32); CHLORIDE LEVEL 103 MEQ/L (98-107); CREATININE FOR GFR 0.81 MG/DL (0.55-1.30); ETHYL ALCOHOL (ETHANOL) 0.003 % (0.000-0.010); GLOMERULAR FILTRATION RATE > 60.0 (>58); GLUCOSE, FASTING 151 MG/DL (70-100); POTASSIUM SERUM 3.6 MEQ/L (3.5-5.1); SALICYLATE LEVEL < 1.7 MG/DL (5.0-30.0); SODIUM LEVEL 135 MEQ/L (136-145); TOTAL PROTEIN 6.4 GM/DL (6.4-8.2)
[2020-02-04] MEDS ORDERED: NICO14DI31 TOP (15:43)
[2020-02-04] MEDS ORDERED: ACETAMINOPHEN TAB 650MG DOSE (2X325MG) PO PRN (16:15)
[2020-02-04] MEDS ORDERED: traZODone 50 MG TAB PO PRN (16:15)
[2020-02-04] MEDS ORDERED: OLANZapine ORAL DISINTEGRATING TAB 5MG PO PRN (16:15)
[2020-02-04] MEDS ORDERED: MOM 30ML SUSPENSION UDC PO PRN (16:15)
[2020-02-04] MEDS ORDERED: IBUPROFEN 400 MG TAB PO PRN (16:15)
[2020-02-04] MEDS ORDERED: MAALOX 30 ML SUSP *UDC PO PRN (16:15)
[2020-02-04 19:02] VITALS: BP 134/85
[2020-02-05 06:03] VITALS: BP 124/71
[2020-02-05] MEDS: NICOTINE 14 MG/24 HR TRANSDERMAL TOP SCH (09:42)
--- NOTE | 2020-02-05 10:18 | MHHPEPDOC ---
General Date Of Admission: February 04, 2020 Legal Status: 9.39 Chief Complaint "I don't know the my husbands my " History of Present Illness HISTORY OF THE PRESENT ILLNESS: Patient is a 44 -year-old , female, who Presents to [facility] after reportedly becoming bizarre and paranoid. Her brought her in as he was concerned that she was acting strange, she was worried about taxes that had no problems, she became paranoid and delusional. She no longer engage in any regular activities and began to suspect her was not her . When she was brought in she realize she was having such bizarre symptoms and was amenable to being admitted. The patient is met with she had difficulty describing many of her symptoms, saying that she was paranoid about her and didn't know whether this was real or not. She appeared quite confused.. Psychiatric Review of Systems Psychosis: delusions, paranoia, disorganization Past Psychiatric History Previous Psychiatric Diagnosis: depression related to medication. Previous Psychiatric Admissions: one previously earlier this year. Suicide Attempts: none. Psychiatric Follow-up: none. Psychiatric medications: none. Past Medical History Medical Problems Inflammatory bowel disease Family Medical/Psychiatric HX Medical Problems Unknown at this time patient to confused answer questions. Addiction History other (Negative urine toxicology screen) Social History Childhood: unclear, didn't appear to previously report any problems. Abuse/Trauma: none reported. Current Living Situation: lives with . Education: high school graduation and beyond. Employment: unclear. Social Support: . Legal: none noted. Marital: for number of years. Mental Status Examination General Appearance: unkempt Build: average Demeanor: preoccupied Eye Contact: avoidant Activity: slowed Behavior: cooperative Speech: slow, low in volume Mood: depressed Mood "Don't know" Affect: flat Thought Process: logical/linear Thought Content (Delusions): persecutory, bizarre, paranoia Thought Content (Other): preoccupied, appears paranoid Cognition(Intelligence Est.): average Oriented: Awake, Alert Insight: poor Judgment: Poor Psychosis: Denies A-FIB/CHADSVASC A-FIB History Current/History of A-Fib/PAF?: No Assessment 44-year-old woman with a previous history of substance related depression, primarily from her sulfasalazine. She presents this admission fairly psychotic, medical causes are likely a high differential cause for her psychosis as she is no history of psychosis prior. Problem List Problems: (1) Psychosis Status: Acute Response to Treatment: Uncontrolled Discussed With: Nurse Problem Specific Plan: Monitor Clinically Problem Text: Will start patient on Zyprexa 5 mg nightly, if doesn't resolve judiciously will consider EEG to determine if medical cause likely. Initial Treatment Plan 1. Patient was admitted on a [9.39] status. 2. Complete history was obtained. 3. With patients permission, family will be contacted and database will be expanded. 4. Patients medication regimen will be reviewed and changed accordingly. 5. Patient will be provided with protected environment. 6. Patient will be treated with individual, group, and milieu therapies. 7. Patient will receive supportive psych-education. 8. Discharge planning will commence immediately. 9. Outpatient follow-up treatment will be strongly recommended. 10. The initial treatment plan will focus initially on: * Depression. * Risk for suicide. ESTIMATED LENGTH OF STAY: 2-3 DAYS. TIME SPENT COUNSELING AND COORDINATING INITIAL CARE: 70 minutes weaker than 50% of time on counseling and coordination of care Vital Signs Vital Signs Date Time Temp Pulse Resp B/P (MAP) Pulse Ox O2 Delivery O2 Flow Rate FiO2 02/05/20 06:03 98.6 97 14 124/71 (88) 98 Room Air Laboratory Data 24H Labs Laboratory Tests 2 02/04/20 11:51: Nucleated Red Blood Cells % (auto) 0.0, Anion Gap 3L, Glomerular Filtration Rate > 60.0, Calcium Level 9.1, Total Bilirubin 1.2H, Direct Bilirubin 0.3H, Aspartate Amino Transf (AST/SGOT) 6L, Alanine Aminotransferase (ALT/SGPT) 20, Alkaline Phosphatase 60, Total Protein 6.4, Albumin 3.9, Albumin/Globulin Ratio 1.6, Thyroid Stimulating Hormone (TSH) 2.060, Human Chorionic Gonadotropin, Qual NEGATIVE, Salicylates Level < 1.7L, Urine Opiates Screen NEGATIVE, Urine Met hadone Screen NEGATIVE, Acetaminophen Level < 2.0L, Urine Barbiturates Screen NEGATIVE, Urine Phencyclidine Screen NEGATIVE, Urine Amphetamines Screen NEGATIVE, Urine Benzodiazepines Screen NEGATIVE, Urine Cocaine Metabolite Screen NEGATIVE, Urine Cannabinoids Screen NEGATIVE, Ethyl Alcohol Level 0.003 CBC/BMP Laboratory Tests 5/27/20 11:51 Medications Scheduled Adalimumab (Humira) 40 Mg/0.8 Ml Syringekit, 40 MG SC Q2WK, (Reported) Nicotine (Nicotine Patch) 14 Mg/24 Hr Patch.td24, 14 MG TOP DAILY, (Reported) Allergies Coded Allergies: No Known Allergies (Verified Allergy, Unknown, 02/04/20) LU JHA DO February 05, 2020 10:18
[2020-02-05 17:52] VITALS: BP 144/73
--- NOTE | 2020-02-05 18:16 | HPEPDOC ---
[facility] Medical History & Physical Date of Admission February 05, 2020 Date of Service: February 05, 2020 Attending Physician: TEMO VILLAFANA MD History and Physical CHIEF COMPLAINT: Increased anxiety, depression and paranoid delusions HPI: 44-yo W with psoriatic arthritis now only on Q2W adalimumab, history of depression with prior suicide attempt and thought that prior anxiety, depression with paranoid delusions were 2/2 sulfasalazine, so it was stopped. She presented today with anxiety, depression and increasing debilitating paranoid delusions, brought in by her after perseverating about being watched by police from a neighbor's new trailer, taxes down incorrectly etc. In the ED, CBC, BMP and tox screens were wnl and she is now admitted to the [facility]. PAST MEDICAL HISTORY: 1. Psoriatic arthritis. 2. Suicide attempt by polydrug overdose, possibly secondary to toxic effects of sulfasalazine. 3. Depression. PAST SURGICAL HISTORY: Psoriatic arthritis SOCIAL HISTORY: Patient is , lives with her . She does not use alcohol, tobacco, or illicit drugs. FAMILY HISTORY: Not relevant for depression or previous suicide attempt in her family members. REVIEW OF SYSTEMS: 12 point ROS reviewed, the patient is otherwise negative. Vitals: see below. HDS, afebrile General: NAD HEENT: NCAT, PERRLA, EOMI, MMM Lungs: CTAB Heart: RRR, no mrg Abdomen: Normoactive sounds, NTND, soft Neurologic: Cranial nerves II-XII are grossly intact without any focal neurologic deficits. Labs: reviewed Assessment: 44-yo W with psoriatic arthritis now only on Q2W adalimumab, history of depression with prior suicide attempt and thought that prior anxiety, depression with paranoid delusions were 2/2 sulfasalazine, so it was stopped. She presented today with anxiety, depression and increasing debilitating paranoid delusions. Anxiety, depression and paranoid delusions: -Previously was thought 2/2 sulfasalazine but she is off that medication now for weeks with persistent even worsening symptoms. -Tx per primary psychiatry team Psoriatic arthritis: -on Q2W adalimumab, NTD for now while inpatient Thank you for allowing us to participate in the care of this patient. Will sign off at this time. Vital Signs Vital Signs Date Time Temp Pulse Resp B/P (MAP) Pulse Ox O2 Delivery O2 Flow Rate FiO2 5/28/20 06:03 98.6 97 14 124/71 (88) 98 Room Air Home Medications Scheduled Adalimumab (Humira) 40 Mg/0.8 Ml Syringekit, 40 MG SC Q2WK Nicotine (Nicotine Patch) 14 Mg/24 Hr Patch.td24, 14 MG TOP DAILY Allergies Coded Allergies: No Known Allergies (Verified Allergy, Unknown, 02/04/20) A-FIB/CHADSVASC A-FIB History Current/History of A-Fib/PAF?: No Current PO Anticoag Therapy: No Age/Risk Factor Scoring CHADSVASC: CHADSVASC Response (Comments) Value Age Risk Factor Age < 65 years old 0 Gender Risk Factor Female 1 Hx of CHF No 0 Hx of HTN No 0 Hx of Stroke/TIA/or VTE No 0 Hx of Diabetes No 0 Hx of Vascular Disease No 0 Total 1 Treatment Treatment ordered: NONE Reason Anticoagulant not given: Not indicated/[id number] TEMO VILLAFANA MD February 05, 2020 17:14
[2020-02-05] MEDS: OLANZapine 5 MG TAB PO SCH (21:00)
[2020-02-06 06:33] VITALS: BP 116/75
[2020-02-06] MEDS: NICOTINE 14 MG/24 HR TRANSDERMAL TOP SCH (08:33)
--- NOTE | 2020-02-06 09:17 | MHIPNPDOC ---
[facility] Progress Note Progress Note DATE OF SERVICE: 02/06/20 The patient was met with today. She still quite psychotic and unable to rationalize anything. She is refuse medications overnight and still remains quite distorted. She is had no behavioral problems overnight, but contributes little to any interview today. Vital Signs Vital Signs Date Time Temp Pulse Resp B/P (MAP) Pulse Ox O2 Delivery O2 Flow Rate FiO2 02/06/20 06:33 98.8 103 18 116/75 (89) 97 Room Air Current Medications Current Medications Medications (Trade) Dose Ordered Sig/Dana Route PRN Reason Start Time Stop Time Status Last Admin Dose Admin Acetaminophen (Tylenol Tab) 650 mg Q6HP PRN PO HEADACHE or DISCOMFORT 02/04/20 16:15 Al Hydrox/Mg Hydrox/Simethicone (Mylanta) 30 ml Q4HP PRN PO HEARTBURN/INDIGESTION 02/04/20 16:15 Home Med (Med Rec Complete!) ASDIRECTED XX 02/04/20 15:45 02/04/20 15:47 DC Ibuprofen (Advil) 400 mg Q6HP PRN PO PAIN 02/04/20 16:15 Magnesium Hydroxide (Milk Of Magnesia) 30 ml DAILYPRN PRN PO CONSTIPATION 02/04/20 16:15 Nicotine (Nicoderm Cq 14mg) 1 patch DAILY TOP 02/05/20 09:00 02/05/20 09:42 Olanzapine (ZyPREXA ZYDIS) 5 mg Q4HP PRN PO AGITATION 02/04/20 16:15 Olanzapine (ZyPREXA) 5 mg QHS PO 02/05/20 21:00 Trazodone HCl (Desyrel) 50 mg QHSP PRN PO INSOMNIA 02/04/20 16:15 Allergies Coded Allergies: No Known Allergies (Verified Allergy, Unknown, 02/04/20) Review of Systems Review of Systems General: Reports: ROS Unobtainable Mental Status Examination General Appearance: unkempt Build: average Demeanor: mistrustful Eye Contact: avoidant Activity: slowed Behavior: uncooperative Speech: clear Mood "fine" Affect: flat Thought Process: incoherent Thought Content (Delusions): none reported Thought Content (Other): none reported Oriented: Awake, Alert Insight: poor Judgment: Poor Psychosis: Psychotic Perceptions Assessment 44-year-old woman with new onset psychosis presents after becoming quite distorted, she is refuse medications, although due to her comorbidities, it's possible that a medical condition could account for her psychosis. Problem List Problems: (1) Psychosis Status: Acute Response to Treatment: Uncontrolled Problem Text: Continue to offer Zyprexa 5 mg nightly, EEG ordered Medications Scheduled Adalimumab (Humira) 40 Mg/0.8 Ml Syringekit, 40 MG SC Q2WK, (Reported) Nicotine (Nicotine Patch) 14 Mg/24 Hr Patch.td24, 14 MG TOP DAILY, (Reported) LU JHA DO February 06, 2020 09:17
[2020-02-06 17:09] VITALS: BP 138/87
[2020-02-06] MEDS: OLANZapine 5 MG TAB PO SCH (20:00)
[2020-02-07 05:58] VITALS: BP 138/60
[2020-02-07] MEDS: NICOTINE 14 MG/24 HR TRANSDERMAL TOP SCH (09:00)
[2020-02-07 16:37] VITALS: BP 119/67
[2020-02-07] MEDS: OLANZapine 5 MG TAB PO SCH (20:18)
[2020-02-08 06:23] VITALS: BP 123/73
[2020-02-08] MEDS: NICOTINE 14 MG/24 HR TRANSDERMAL TOP SCH (09:00)
--- NOTE | 2020-02-08 15:42 | MHIPN ---
DATE: 02/07/2020 This is a video assessment, it is being done because of the virus pandemic, the patient is aware of this, and agrees to it. CHIEF COMPLAINT: She feels anxious. SUBJECTIVE: She is seen for followup, in the presence of staff, says has felt anxious, but that she is not as paranoid. When asked to expand on "paranoid," which is the word she uses, she says she has the impression that others are following her, but that they are outside the hospital, and that she does not think that those thoughts are as intense as they have been lately. She suggests she has had these thoughts for quite awhile, but is vague on this. She indicates she can not hear them outright as such, but that in the past has heard sounds associated with being followed. She then suggests that it is more a sense of "a presence." She has not had any contact with her . She says her appetite has been okay. MENTAL STATUS EXAMINATION: She is neat. She is cooperative, though a bit guarded. Coherent for the most part, a bit hesitant at times, affect is restricted in range, but shows some reactivity. She has paranoid thoughts, delusions of being followed. She does not appear internally preoccupied. Cognition grossly intact. Judgment and insight are compromised. ASSESSMENT: 1. Consider major depressive disorder with psychosis. 2. Also consider "medical cause" for her psychosis. When she was admitted a couple of months ago, there were concerns that sulfasalazine, which she was on at the time, may have induced difficulties with mood, possible psychosis. It is unusual to have primary psychosis develop at that age, though not unheard of. PLAN: Continue current care, observations, and I would suggest continuing to offer her an antipsychotic, she has been started on olanzapine at 5 mg at night. Continue the rest of her care. VITAL SIGNS: Blood pressure 138/60, pulse 68, temperature 97.3.
[2020-02-08 16:51] VITALS: BP 114/56
[2020-02-08] MEDS: OLANZapine 5 MG TAB PO SCH (20:14)
[2020-02-09 06:11] VITALS: BP 132/84
[2020-02-09] MEDS: NICOTINE 14 MG/24 HR TRANSDERMAL TOP SCH (08:51)
[2020-02-09 15:16] VITALS: BP 133/63
[2020-02-09] MEDS: OLANZapine 5 MG TAB PO SCH (20:53)
[2020-02-10 06:07] VITALS: BP 123/70
--- NOTE | 2020-02-10 06:12 | EEG ---
DATE OF PROCEDURE: 02/06/2020 REFERRING PHYSICIAN: Dr. All Dunn DIAGNOSIS: New-onset psychosis, rule out seizures. EEG #: [id number] HISTORY: The patient is a 44-year-old woman who was admitted at mental health unit due to anxiety, depression and paranoid delusions. This EEG was done to rule out epileptic potential. She is currently taking trazodone, Zyprexa, etc. TECHNICAL DESCRIPTION: This digital EEG was recorded by 21 scalp, ear and two EKG electrodes and was reviewed in bipolar and referential montages following reformatting in 10-20 international electrode placement system. INTERPRETATION: The patient was noted to be in awake and drowsy states during this EEG. Resting awake background rhythm consisted of well-formed posterior dominant rhythm with anterior/posterior gradient comprising of 9 Hz alpha activity measuring 15-80 microvolts in amplitude which was symmetric and reactive to eye opening. Attenuation of posterior dominant rhythm was seen during transition into drowsiness. No sleep was achieved. Hyperventilation and photic stimulation remained unremarkable. No focal, lateralizing or epileptiform abnormalities were seen. No relevant clinical activity was noted. EKG revealed normal sinus rhythm. CONCLUSION: This EEG in awake and drowsy states is within normal limits.
--- NOTE | 2020-02-10 06:51 | MHIPN ---
DATE: VITAL SIGNS: Blood pressure 114/56. Temperature 98.4. Pulse 71. CHIEF COMPLAINT: Says she is not sure how she feels. SUBJECTIVE: She is seen for followup, this is by video, she is aware of this. She seems okay, does indicate not much motivation. She acknowledges she still has feelings that others are following her, including outside, and says cannot hear them. She says she slept well, appetite is okay. MENTAL STATUS EXAMINATION: Neat. Cooperative. At times appears somewhat disinterested. She is coherent. Affect is restricted in range. No evidence of any thoughts of harming herself or anyone else. She has paranoid delusions, but somewhat aware of them, does not appear internally preoccupied. Cognition grossly intact. Judgment and insight fair. ASSESSMENT: Major depressive disorder with psychotic features. The possibility of medical cause contributing to her psychosis is also considered. PLAN: Continue current care, including the olanzapine 5 mg at night. Continue other observations. Further recommendations will be made by the patient's psychiatrist.
[2020-02-10] MEDS: NICOTINE 14 MG/24 HR TRANSDERMAL TOP SCH (08:36)
[2020-02-10] MEDS ORDERED: SERTRALINE HCL 25 MG TABLET PO ONE (10:15)
--- NOTE | 2020-02-10 10:23 | MHIPNPDOC ---
[facility] Progress Note Progress Note The patient was seen on 02/10/20. 44-year-old woman is seen in follow-up today. She is still quite bizarre and makes little conversation during the interview. She generally still doesn't want take medications, the EEG was negative and it is increase the suspicion of potentially major depression with psychotic features. She hasn't had any behavioral problems overnight, but remains isolative. Vital Signs Vital Signs Date Time Temp Pulse Resp B/P (MAP) Pulse Ox O2 Delivery O2 Flow Rate FiO2 02/10/20 06:07 99.5 78 14 123/70 (87) 96 Room Air Current Medications Current Medications Medications (Trade) Dose Ordered Sig/Dana Route PRN Reason Start Time Stop Time Status Last Admin Dose Admin Acetaminophen (Tylenol Tab) 650 mg Q6HP PRN PO HEADACHE or DISCOMFORT 02/04/20 16:15 Al Hydrox/Mg Hydrox/Simethicone (Mylanta) 30 ml Q4HP PRN PO HEARTBURN/INDIGESTION 02/04/20 16:15 Home Med (Med Rec Complete!) ASDIRECTED XX 02/04/20 15:45 02/04/20 15:47 DC Ibuprofen (Advil) 400 mg Q6HP PRN PO PAIN 02/04/20 16:15 Magnesium Hydroxide (Milk Of Magnesia) 30 ml DAILYPRN PRN PO CONSTIPATION 02/04/20 16:15 Nicotine (Nicoderm Cq 14mg) 1 patch DAILY TOP 02/05/20 09:00 02/05/20 09:42 Olanzapine (ZyPREXA ZYDIS) 5 mg Q4HP PRN PO AGITATION 02/04/20 16:15 Olanzapine (ZyPREXA) 5 mg QHS PO 02/05/20 21:00 02/09/20 20:53 Sertraline HCl (Zoloft) 25 mg DAILY PO 02/11/20 09:00 Trazodone HCl (Desyrel) 50 mg QHSP PRN PO INSOMNIA 02/04/20 16:15 Allergies Coded Allergies: No Known Allergies (Verified Allergy, Unknown, 02/04/20) Review of Systems Review of Systems General: Reports: ROS Unobtainable Mental Status Examination General Appearance: unkempt Build: average Demeanor: average Eye Contact: average Activity: average Behavior: uncooperative Speech: low in volume Mood: depressed Affect: constricted Thought Process: circumstantial Cognition(Intelligence Est.): average Oriented: Awake, Alert Insight: poor Judgment: Poor Psychosis: Psychotic Perceptions Problem List Problems: (1) Psychosis Status: Acute Response to Treatment: Uncontrolled Problem Text: Will start sertraline 25 mg daily and augment with 5 mg of Zyprexa under the assumption of potential MDD with psychotic features Medications Scheduled Adalimumab (Humira) 40 Mg/0.8 Ml Syringekit, 40 MG SC Q2WK, (Reported) Nicotine (Nicotine Patch) 14 Mg/24 Hr Patch.td24, 14 MG TOP DAILY, (Reported) LU JHA DO Feb 10, 2020 10:23
[2020-02-10 17:11] VITALS: BP 135/77
[2020-02-10] MEDS: OLANZapine 5 MG TAB PO SCH (20:32)
[2020-02-11 06:14] VITALS: BP 137/71
[2020-02-11] MEDS: NICOTINE 14 MG/24 HR TRANSDERMAL TOP SCH (09:00)
[2020-02-11] MEDS: SERTRALINE HCL 25 MG TABLET PO SCH (09:46)
[2020-02-11 17:24] VITALS: BP 130/74
[2020-02-11] MEDS: OLANZapine 5 MG TAB PO SCH (21:08)
[2020-02-12 06:15] VITALS: BP 130/70
[2020-02-12] MEDS: SERTRALINE HCL 25 MG TABLET PO SCH (08:32)
[2020-02-12] MEDS: NICOTINE 14 MG/24 HR TRANSDERMAL TOP SCH (08:32)
--- NOTE | 2020-02-12 09:49 | MHIPNPDOC ---
[facility] Progress Note Progress Note DOS 02/12/2020 Events Overnight: none Group Attendance:: not really Symptom changes (psych ROS): continues report paranoia, unclear thoughts and that she is "not herself". She generally doesn't engage in much of an interview today. Staff Report: still paranoid and bizarre. Medical ROS: Still unusual and doesn't answer questions directly. MSE: Vitals: Below General: Well dressed with good hygiene Speech: Spontaneous and fluid Thought processes: slow Thought content: bizarre Abstract reasoning, and computation: impaired Description of associations: impaired Description of abnormal or psychotic thoughts: no self-harm thoughts elicited Judgment: poor Insight: poor Orientation: Alert and orientated 3 Recent and remote memory: Intact Attention span and concentration: Intact Fund of knowledge: Adequate Mood: "okay" Affect: dysthymic, constricted Vital Signs Vital Signs Date Time Temp Pulse Resp B/P (MAP) Pulse Ox O2 Delivery O2 Flow Rate FiO2 02/12/20 06:15 98.0 99 12 130/70 (90) 02/11/20 06:14 96 Room Air Current Medications Current Medications Medications (Trade) Dose Ordered Sig/Dana Route PRN Reason Start Time Stop Time Status Last Admin Dose Admin Acetaminophen (Tylenol Tab) 650 mg Q6HP PRN PO HEADACHE or DISCOMFORT 02/04/20 16:15 Al Hydrox/Mg Hydrox/Simethicone (Mylanta) 30 ml Q4HP PRN PO HEARTBURN/INDIGESTION 02/04/20 16:15 Home Med (Med Rec Complete!) ASDIRECTED XX 02/04/20 15:45 02/04/20 15:47 DC Ibuprofen (Advil) 400 mg Q6HP PRN PO PAIN 02/04/20 16:15 Magnesium Hydroxide (Milk Of Magnesia) 30 ml DAILYPRN PRN PO CONSTIPATION 02/04/20 16:15 Nicotine (Nicoderm Cq 14mg) 1 patch DAILY TOP 02/05/20 09:00 02/05/20 09:42 Olanzapine (ZyPREXA ZYDIS) 5 mg Q4HP PRN PO AGITATION 02/04/20 16:15 Olanzapine (ZyPREXA) 5 mg QHS PO 02/05/20 21:00 02/11/20 21:08 Sertraline HCl (Zoloft) 25 mg DAILY PO 02/11/20 09:00 02/12/20 08:32 Trazodone HCl (Desyrel) 50 mg QHSP PRN PO INSOMNIA 02/04/20 16:15 Allergies Coded Allergies: No Known Allergies (Verified Allergy, Unknown, 02/04/20) Problems (1) Psychosis Status: Acute Response to Treatment: Uncontrolled Problem Text: continue sertraline 25 mg daily, will discontinue Zyprexa and start Abilify 2 mg nightly discuss with patient is much is able to. Plan / VTE VTE Prophylaxis Ordered?: No Plan Diet: Continue Current Activity: Continue Current Anticipated Discharge: Home (unclear if will need long-term treatment) LU JHA DO Feb 12, 2020 09:49
[2020-02-12 17:29] VITALS: BP 156/71
[2020-02-12] MEDS ORDERED: ARIPiprazole 2 MG TAB PO SCH (21:00)
[2020-02-13 06:22] VITALS: BP 122/73
[2020-02-13] MEDS ORDERED: SERTRALINE HCL 50 MG TAB PO SCH (09:00)
[2020-02-13] MEDS: NICOTINE 14 MG/24 HR TRANSDERMAL TOP SCH (09:00)
--- NOTE | 2020-02-13 10:03 | MHIPNPDOC ---
[facility] Progress Note Progress Note DOS 02/13/2020 Patient met with today with nurse present for telehealth evaluation due to COVID Crisis Events Overnight: isolative to room Group Attendance:: none Symptom changes (psych ROS): Affective: reports some low mood at times and loss of interest as well as fatigue Psychotic: so reports some paranoia, although less than previous Anxiety: see reports anxiety secondary to paranoia Staff Report: staff report patient still odd and isolative to her room sleeping the majority through the day Medical ROS: [Gen: -fevers, chills] [Cardio: -chest pain, palpations] [[place]: -SOB, cough] [GI: -N,V,D,C] [Neuro: -tremors, msk stiffness] [Derm: -rash] MSE: Vitals: Below General: Well dressed with good hygiene Speech: slowed but improving Thought processes: Linear and logical Thought content: hopelessness Abstract reasoning, and computation: Intact Description of associations: Intact Description of abnormal or psychotic thoughts: denies any suicidal or homicidal ideation Judgment: improving Insight: improving Orientation: Alert and orientated 3 Recent and remote memory: Intact Attention span and concentration: Intact Fund of knowledge: Adequate Mood: "okay" Affect: dysthymic, constricted Vital Signs Vital Signs Date Time Temp Pulse Resp B/P (MAP) Pulse Ox O2 Delivery O2 Flow Rate FiO2 02/13/20 06:22 98.8 101 16 122/73 (89) 96 Room Air Current Medications Current Medications Medications (Trade) Dose Ordered Sig/Dana Route PRN Reason Start Time Stop Time Status Last Admin Dose Admin Acetaminophen (Tylenol Tab) 650 mg Q6HP PRN PO HEADACHE or DISCOMFORT 02/04/20 16:15 Al Hydrox/Mg Hydrox/Simethicone (Mylanta) 30 ml Q4HP PRN PO HEARTBURN/INDIGESTION 02/04/20 16:15 Aripiprazole (AbiLIFY) 2 mg QHS PO 02/12/20 21:00 02/12/20 20:26 Home Med (Med Rec Complete!) ASDIRECTED XX 02/04/20 15:45 02/04/20 15:47 DC Ibuprofen (Advil) 400 mg Q6HP PRN PO PAIN 02/04/20 16:15 Magnesium Hydroxide (Milk Of Magnesia) 30 ml DAILYPRN PRN PO CONSTIPATION 02/04/20 16:15 Nicotine (Nicoderm Cq 14mg) 1 patch DAILY TOP 02/05/20 09:00 02/05/20 09:42 Olanzapine (ZyPREXA ZYDIS) 5 mg Q4HP PRN PO AGITATION 02/04/20 16:15 Olanzapine (ZyPREXA) 5 mg QHS PO 02/05/20 21:00 02/12/20 10:56 DC 02/11/20 21:08 Sertraline HCl (Zoloft) 25 mg DAILY PO 02/11/20 09:00 02/12/20 10:56 DC 02/12/20 08:32 Sertraline HCl (Zoloft) 50 mg DAILY PO 02/13/20 09:00 02/13/20 10:00 Trazodone HCl (Desyrel) 50 mg QHSP PRN PO INSOMNIA 02/04/20 16:15 Allergies Coded Allergies: No Known Allergies (Verified Allergy, Unknown, 02/04/20) Problems (1) Psychosis Status: Acute Response to Treatment: Improving Problem Specific Plan: Monitor Clinically Problem Text: increase sertraline to 75 mg daily, increase Abilify to 5 mg daily, likely MDD with psychotic features Plan / VTE VTE Prophylaxis Ordered?: No Plan Diet: Continue Current Activity: Continue Current Anticipated Discharge: Home (unclear if will need long-term treatment) LU JHA DO Feb 13, 2020 10:03
[2020-02-13 18:00] VITALS: BP 148/82
[2020-02-14 06:16] VITALS: BP 134/63
[2020-02-14] MEDS: SERTRALINE HCL 25 MG TABLET PO SCH (08:26)
[2020-02-14] MEDS: NICOTINE 14 MG/24 HR TRANSDERMAL TOP SCH (08:26)
[2020-02-14 16:02] VITALS: BP 135/65
[2020-02-15 06:43] VITALS: BP 128/69
[2020-02-15] MEDS: NICOTINE 14 MG/24 HR TRANSDERMAL TOP SCH (09:00)
[2020-02-15] MEDS: SERTRALINE HCL 25 MG TABLET PO SCH (09:15)
[2020-02-15 15:54] VITALS: BP 148/69
[2020-02-16 06:02] VITALS: BP 140/65
[2020-02-16] MEDS: SERTRALINE HCL 25 MG TABLET PO SCH (08:57)
[2020-02-16] MEDS: NICOTINE 14 MG/24 HR TRANSDERMAL TOP SCH (08:59)
--- NOTE | 2020-02-16 10:03 | MHIPNPDOC ---
[facility] Progress Note Progress Note DOS: 02/16/2020 Patient met with today with nurse present for telehealth evaluation due to COVID Crisis Events Overnight:[none] Group Attendance:: none Symptom changes (psych ROS): Affective: reports improving fatigue and loss of interest Psychotic: still reports being paranoid feeling that her is in her and their family is impostors Anxiety: anxiety as above Staff Report: still extremely paranoid and hesitant about signing releases Medical ROS: [Gen: -fevers, chills] [Cardio: -chest pain, palpations] [[place]: -SOB, cough] [GI: -N,V,D,C] [Neuro: -tremors, msk stiffness] [Derm: -rash] MSE: Vitals: Below General: Well dressed with good hygiene Speech: Spontaneous and fluid Thought processes: linear Thought content: paranoia present Abstract reasoning, and computation: Intact Description of associations: Intact Description of abnormal or psychotic thoughts: denies any suicidal or homicidal ideation Judgment: limited Insight: limited Orientation: Alert and orientated 3 Recent and remote memory: Intact Attention span and concentration: Intact Fund of knowledge: Adequate Mood: "okay" Affect: dysthymic, constricted Vital Signs Vital Signs Date Time Temp Pulse Resp B/P (MAP) Pulse Ox O2 Delivery O2 Flow Rate FiO2 02/16/20 06:02 97.9 72 12 140/65 (90) 02/15/20 06:43 96 Room Air Current Medications Current Medications Medications (Trade) Dose Ordered Sig/Dana Route PRN Reason Start Time Stop Time Status Last Admin Dose Admin Acetaminophen (Tylenol Tab) 650 mg Q6HP PRN PO HEADACHE or DISCOMFORT 02/04/20 16:15 Al Hydrox/Mg Hydrox/Simethicone (Mylanta) 30 ml Q4HP PRN PO HEARTBURN/INDIGESTION 02/04/20 16:15 Aripiprazole (AbiLIFY) 2 mg QHS PO 02/12/20 21:00 02/13/20 10:22 DC 02/12/20 20:26 Aripiprazole (AbiLIFY) 5 mg QHS PO 02/13/20 21:00 02/15/20 21:16 Home Med (Med Rec Complete!) ASDIRECTED XX 02/04/20 15:45 02/04/20 15:47 DC Ibuprofen (Advil) 400 mg Q6HP PRN PO PAIN 02/04/20 16:15 Magnesium Hydroxide (Milk Of Magnesia) 30 ml DAILYPRN PRN PO CONSTIPATION 02/04/20 16:15 Nicotine (Nicoderm Cq 14mg) 1 patch DAILY TOP 02/05/20 09:00 02/05/20 09:42 Olanzapine (ZyPREXA ZYDIS) 5 mg Q4HP PRN PO AGITATION 02/04/20 16:15 Olanzapine (ZyPREXA) 5 mg QHS PO 02/05/20 21:00 02/12/20 10:56 DC 02/11/20 21:08 Sertraline HCl (Zoloft) 25 mg DAILY PO 02/11/20 09:00 02/12/20 10:56 DC 02/12/20 08:32 Sertraline HCl (Zoloft) 50 mg DAILY PO 02/13/20 09:00 02/13/20 10:22 DC 02/13/20 10:00 Sertraline HCl (Zoloft) 75 mg DAILY PO 02/14/20 09:00 02/16/20 08:57 Trazodone HCl (Desyrel) 50 mg QHSP PRN PO INSOMNIA 02/04/20 16:15 Allergies Coded Allergies: No Known Allergies (Verified Allergy, Unknown, 02/04/20) Problems (1) Major depression with psychotic features Status: Acute Response to Treatment: Controlled Problem Text: Increase sertraline to 100 mg daily, increase Abilify to 10 mg nightly after Plan / VTE VTE Prophylaxis Ordered?: No Plan Diet: Continue Current Activity: Continue Current Anticipated Discharge: Psych (Referral to long-term services, conversion to 9.27 legal status) LU JHA DO Feb 16, 2020 10:03
[2020-02-16 16:51] VITALS: BP 132/78
[2020-02-17 06:17] VITALS: BP 127/63
[2020-02-17] MEDS: NICOTINE 14 MG/24 HR TRANSDERMAL TOP SCH (09:00)
[2020-02-17] MEDS: SERTRALINE 100 MG TAB PO SCH (09:09)
[2020-02-17 16:27] VITALS: BP 123/73
[2020-02-18 06:21] VITALS: BP 121/68
[2020-02-18] MEDS: NICOTINE 14 MG/24 HR TRANSDERMAL TOP SCH (09:00)
[2020-02-18] MEDS: SERTRALINE 100 MG TAB PO SCH (09:22)
--- NOTE | 2020-02-18 09:40 | MHIPNPDOC ---
[facility] Progress Note Progress Note DOS: 02/18/2020 Patient met with today with nurse present for telehealth evaluation due to COVID Crisis Events Overnight:[none] Group Attendance:: none Symptom changes (psych ROS): Affective: reports improving fatigue and loss of interest Psychotic: still paranoid Anxiety: anxiety about paranoia Staff Report: still anxious about family, and fairly paranoid Medical ROS: [Gen: -fevers, chills] [Cardio: -chest pain, palpations] [[place]: -SOB, cough] [GI: -N,V,D,C] [Neuro: -tremors, msk stiffness] [Derm: -rash] MSE: Vitals: Below General: [Well dressed with good hygiene] Speech: [Spontaneous and fluid] Thought processes: [Linear and logical] Thought content: less paranoid thoughts Abstract reasoning, and computation: improving Description of associations: [Intact] Description of abnormal or psychotic thoughts: denies any SI or HI Judgment: improving Insight: improving Orientation: [Alert and orientated 3] Recent and remote memory: [Intact] Attention span and concentration: [Intact] Fund of knowledge: [Adequate] Mood: ["okay"] Affect: improving Vital Signs Vital Signs Date Time Temp Pulse Resp B/P (MAP) Pulse Ox O2 Delivery O2 Flow Rate FiO2 02/18/20 06:21 96.6 75 12 121/68 (85) Room Air 02/15/20 06:43 96 Current Medications Current Medications Medications (Trade) Dose Ordered Sig/Dana Route PRN Reason Start Time Stop Time Status Last Admin Dose Admin Acetaminophen (Tylenol Tab) 650 mg Q6HP PRN PO HEADACHE or DISCOMFORT 02/04/20 16:15 Al Hydrox/Mg Hydrox/Simethicone (Mylanta) 30 ml Q4HP PRN PO HEARTBURN/INDIGESTION 02/04/20 16:15 Aripiprazole (AbiLIFY) 2 mg QHS PO 02/12/20 21:00 02/13/20 10:22 DC 02/12/20 20:26 Aripiprazole (AbiLIFY) 5 mg QHS PO 02/13/20 21:00 02/16/20 10:57 DC 02/15/20 21:16 Aripiprazole (AbiLIFY) 10 mg QHS PO 02/16/20 21:00 02/17/20 20:18 Home Med (Med Rec Complete!) ASDIRECTED XX 02/04/20 15:45 02/04/20 15:47 DC Ibuprofen (Advil) 400 mg Q6HP PRN PO PAIN 02/04/20 16:15 Magnesium Hydroxide (Milk Of Magnesia) 30 ml DAILYPRN PRN PO CONSTIPATION 02/04/20 16:15 Nicotine (Nicoderm Cq 14mg) 1 patch DAILY TOP 02/05/20 09:00 02/05/20 09:42 Olanzapine (ZyPREXA ZYDIS) 5 mg Q4HP PRN PO AGITATION 02/04/20 16:15 Olanzapine (ZyPREXA) 5 mg QHS PO 02/05/20 21:00 02/12/20 10:56 DC 02/11/20 21:08 Sertraline HCl (Zoloft) 25 mg DAILY PO 02/11/20 09:00 02/12/20 10:56 DC 02/12/20 08:32 Sertraline HCl (Zoloft) 50 mg DAILY PO 02/13/20 09:00 02/13/20 10:22 DC 02/13/20 10:00 Sertraline HCl (Zoloft) 75 mg DAILY PO 02/14/20 09:00 02/16/20 10:57 DC 02/16/20 08:57 Sertraline HCl (Zoloft) 100 mg DAILY PO 02/17/20 09:00 02/18/20 09:22 Trazodone HCl (Desyrel) 50 mg QHSP PRN PO INSOMNIA 02/04/20 16:15 Allergies Coded Allergies: No Known Allergies (Verified Allergy, Unknown, 02/04/20) Problems (1) Major depression with psychotic features Status: Acute Response to Treatment: Improving Problem Text: increase sertraline to 125 mg daily and Abilify 15 mg nightly Plan / VTE VTE Prophylaxis Ordered?: No Plan Diet: Continue Current Activity: Continue Current Anticipated Discharge: Home (will attempt to get release to determine potential alternative to long-term) LU JHA DO Feb 18, 2020 09:40
[2020-02-18 16:12] VITALS: BP 125/70
[2020-02-18] MEDS: ARIPiprazole 15 MG TAB (AbiLIFY) PO SCH (20:36)
[2020-02-19 06:32] VITALS: BP 122/60
[2020-02-19] MEDS: SERTRALINE 100 MG TAB PO SCH (08:19)
[2020-02-19] MEDS: SERTRALINE HCL 25 MG TABLET PO SCH (08:19)
[2020-02-19] MEDS: NICOTINE 14 MG/24 HR TRANSDERMAL TOP SCH (08:19)
[2020-02-19] MEDS ORDERED: TUBERCULIN PPD 5 UNITS/0.1 ML ID ONE (13:30)
--- NOTE | 2020-02-19 15:44 | MHIPNPDOC ---
[facility] Progress Note Progress Note DATE OF SERVICE: 02/19/20 HISTORY: As per previous reports: "Patient is a 44 -year-old , female, who Presents to [facility] after reportedly becoming bizarre and paranoid. Her brought her in as he was concerned that she was acting strange, she was worried about taxes that had no problems, she became paranoid and delusional. She no longer engage in any regular activities and began to suspect her was not her . When she was brought in she realize she was having such bizarre symptoms and was amenable to being admitted. The patient is met with she had difficulty describing many of her symptoms, saying that she was paranoid about her and didn't know whether this was real or not. She appeared quite confused.." VITAL SIGNS: See below. NEW TEST RESULTS: see below CURRENT MEDICATIONS: See below. MENTAL STATUS EXAMINATION: Patient is a 44-year old female, who is alert, cooperative, dressed in hospital clothes. Speech: Is needs prompting at times. Language skills good Thought processes including: disorganized, she seems to have thoughts blocking. Thought content: Denies SI/HI, paranoid thoughts, denies grandiose thoughts, admits to bizarre delusions... Description of abnormal or psychotic thoughts: Paranoid thoughts, bizarre thoughts, denies TAV hallucinations, she is internally preoccupied Judgment: Poor Insight: Poor. Orientation: x 3 Recent and remote memory: Intact Attention span and concentration: easily distracted. Mood: "I'm OK". Affect: Constricted DIAGNOSES: 1. Major Depressive disorder with psychosis. ASSESSMENT: Patient continues to exhibit thought blocking, she is disorganized, she still reports paranoid and bizarre delusions on and off. She reports her mood being Ok but her affect is flat, constricted MANAGEMENT PLAN: Continue as per Dr. Dunn TIME SPENT: 15 minutes. Vital Signs Vital Signs Date Time Temp Pulse Resp B/P (MAP) Pulse Ox O2 Delivery O2 Flow Rate FiO2 02/19/20 06:32 98.0 86 16 122/60 (80) 96 Room Air Current Medications Current Medications Medications (Trade) Dose Ordered Sig/Dana Route PRN Reason Start Time Stop Time Status Last Admin Dose Admin Acetaminophen (Tylenol Tab) 650 mg Q6HP PRN PO HEADACHE or DISCOMFORT 02/04/20 16:15 Al Hydrox/Mg Hydrox/Simethicone (Mylanta) 30 ml Q4HP PRN PO HEARTBURN/INDIGESTION 02/04/20 16:15 Aripiprazole (AbiLIFY) 2 mg QHS PO 02/12/20 21:00 02/13/20 10:22 DC 02/12/20 20:26 Aripiprazole (AbiLIFY) 5 mg QHS PO 02/13/20 21:00 02/16/20 10:57 DC 02/15/20 21:16 Aripiprazole (AbiLIFY) 10 mg QHS PO 02/16/20 21:00 02/18/20 11:54 DC 02/17/20 20:18 Aripiprazole (AbiLIFY) 15 mg QHS PO 02/18/20 21:00 02/18/20 20:36 Home Med (Med Rec Complete!) ASDIRECTED XX 02/04/20 15:45 02/04/20 15:47 DC Ibuprofen (Advil) 400 mg Q6HP PRN PO PAIN 02/04/20 16:15 Magnesium Hydroxide (Milk Of Magnesia) 30 ml DAILYPRN PRN PO CONSTIPATION 02/04/20 16:15 Nicotine (Nicoderm Cq 14mg) 1 patch DAILY TOP 02/05/20 09:00 02/05/20 09:42 Olanzapine (ZyPREXA ZYDIS) 5 mg Q4HP PRN PO AGITATION 02/04/20 16:15 Olanzapine (ZyPREXA) 5 mg QHS PO 02/05/20 21:00 02/12/20 10:56 DC 02/11/20 21:08 Sertraline HCl (Zoloft) 25 mg DAILY PO 02/19/20 09:00 02/19/20 08:19 Sertraline HCl (Zoloft) 25 mg DAILY PO 02/11/20 09:00 02/12/20 10:56 DC 02/12/20 08:32 Sertraline HCl (Zoloft) 50 mg DAILY PO 02/13/20 09:00 02/13/20 10:22 DC 02/13/20 10:00 Sertraline HCl (Zoloft) 75 mg DAILY PO 02/14/20 09:00 02/16/20 10:57 DC 02/16/20 08:57 Sertraline HCl (Zoloft) 100 mg DAILY PO 02/17/20 09:00 02/19/20 08:19 Trazodone HCl (Desyrel) 50 mg QHSP PRN PO INSOMNIA 02/04/20 16:15 Allergies Coded Allergies: No Known Allergies (Verified Allergy, Unknown, 02/04/20) LISSA KEY MD Feb 19, 2020 15:37
[2020-02-19 17:52] VITALS: BP 147/68
[2020-02-19] MEDS: ARIPiprazole 15 MG TAB (AbiLIFY) PO SCH (20:29)
[2020-02-20 06:52] VITALS: BP 137/62
[2020-02-20] MEDS: NICOTINE 14 MG/24 HR TRANSDERMAL TOP SCH (09:00)
[2020-02-20] MEDS: SERTRALINE HCL 25 MG TABLET PO SCH (09:15)
[2020-02-20] MEDS: SERTRALINE 100 MG TAB PO SCH (09:15)
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
[2020-02-20 17:15] VITALS: BP 138/81
[2020-02-20] MEDS: ARIPiprazole 15 MG TAB (AbiLIFY) PO SCH (20:22)
[2020-02-21 06:19] VITALS: BP 136/79
[2020-02-21] MEDS: SERTRALINE HCL 25 MG TABLET PO SCH (08:56)
[2020-02-21] MEDS: SERTRALINE 100 MG TAB PO SCH (08:56)
[2020-02-21] MEDS: NICOTINE 14 MG/24 HR TRANSDERMAL TOP SCH (08:57)
[2020-02-21] MEDS ORDERED: PPD DOCUMENTATION ENTRY MISC XX ONE (13:30)
[2020-02-21 16:15] VITALS: BP 139/70
[2020-02-21] MEDS: ARIPiprazole 15 MG TAB (AbiLIFY) PO SCH (20:10)
[2020-02-22 06:25] VITALS: BP 135/63
[2020-02-22] MEDS: SERTRALINE HCL 25 MG TABLET PO SCH (08:01)
[2020-02-22] MEDS: SERTRALINE 100 MG TAB PO SCH (08:01)
[2020-02-22] MEDS: NICOTINE 14 MG/24 HR TRANSDERMAL TOP SCH (09:00)
[2020-02-22 16:19] VITALS: BP 132/71
[2020-02-22] MEDS: ARIPiprazole 15 MG TAB (AbiLIFY) PO SCH (20:24)
[2020-02-23 06:39] VITALS: BP 129/60
[2020-02-23] MEDS: NICOTINE 14 MG/24 HR TRANSDERMAL TOP SCH (09:00)
[2020-02-23] MEDS: SERTRALINE HCL 25 MG TABLET PO SCH (09:38)
[2020-02-23] MEDS: SERTRALINE 100 MG TAB PO SCH (09:38)
[2020-02-23 15:35] VITALS: BP 130/85
[2020-02-23] MEDS: ARIPiprazole 15 MG TAB (AbiLIFY) PO SCH (20:54)
[2020-02-24 06:58] VITALS: BP 126/58
[2020-02-24] MEDS: SERTRALINE 100 MG TAB PO SCH (08:47)
[2020-02-24] MEDS: SERTRALINE HCL 25 MG TABLET PO SCH (08:47)
--- NOTE | 2020-02-24 09:22 | MHIPNPDOC ---
[facility] Progress Note Subjective Kathi presents today for concerns regarding her follow up. Patient has been doing better, she is hoping to finish her visits and be discharged. Patient wants to be discharged tomorrow. Patient has psychotic depression. She is on an anti-depressant and antipsychotic. Patient is taking Abilify and an antidepressant. She feels side effects from the medication but not much. Patient denies any stomach problems, headaches, vision trouble, tremors, muscle tightness, vomiting, fevers, hallucinations, suicidal thoughts, or homicidal thoughts. Patient has issues with her , they are mainly situational. Objective Patient is euphemic. Patient has no suicidal or homicidal ideations. Thought process is linear. Generally logical, no paraonia thoughts detected, associations much improved at this time. Well-dressed, well-groomed, speech is spontaneous. Assessment MDD in full remission. Plan Psychosis is resolved. Continue sertraline 125 mg. Continue abilify 15mg qhs Vital Signs Vital Signs Date Time Temp Pulse Resp B/P (MAP) Pulse Ox O2 Delivery O2 Flow Rate FiO2 02/24/20 06:58 98.1 65 14 126/58 (80) 97 Room Air Current Medications Current Medications Medications (Trade) Dose Ordered Sig/Dana Route PRN Reason Start Time Stop Time Status Last Admin Dose Admin Acetaminophen (Tylenol Tab) 650 mg Q6HP PRN PO HEADACHE or DISCOMFORT 02/04/20 16:15 Al Hydrox/Mg Hydrox/Simethicone (Mylanta) 30 ml Q4HP PRN PO HEARTBURN/INDIGESTION 02/04/20 16:15 Aripiprazole (AbiLIFY) 2 mg QHS PO 02/12/20 21:00 02/13/20 10:22 DC 02/12/20 20:26 Aripiprazole (AbiLIFY) 5 mg QHS PO 02/13/20 21:00 02/16/20 10:57 DC 02/15/20 21:16 Aripiprazole (AbiLIFY) 10 mg QHS PO 02/16/20 21:00 02/18/20 11:54 DC 02/17/20 20:18 Aripiprazole (AbiLIFY) 15 mg QHS PO 02/18/20 21:00 02/23/20 20:54 Home Med (Med Rec Complete!) ASDIRECTED XX 02/04/20 15:45 02/04/20 15:47 DC Ibuprofen (Advil) 400 mg Q6HP PRN PO PAIN 02/04/20 16:15 Magnesium Hydroxide (Milk Of Magnesia) 30 ml DAILYPRN PRN PO CONSTIPATION 02/04/20 16:15 Nicotine (Nicoderm Cq 14mg) 1 patch DAILY TOP 02/05/20 09:00 02/23/20 17:36 DC 02/05/20 09:42 Olanzapine (ZyPREXA ZYDIS) 5 mg Q4HP PRN PO AGITATION 02/04/20 16:15 Olanzapine (ZyPREXA) 5 mg QHS PO 02/05/20 21:00 02/12/20 10:56 DC 02/11/20 21:08 Sertraline HCl (Zoloft) 25 mg DAILY PO 02/19/20 09:00 02/24/20 08:47 Sertraline HCl (Zoloft) 25 mg DAILY PO 02/11/20 09:00 02/12/20 10:56 DC 02/12/20 08:32 Sertraline HCl (Zoloft) 50 mg DAILY PO 02/13/20 09:00 02/13/20 10:22 DC 02/13/20 10:00 Sertraline HCl (Zoloft) 75 mg DAILY PO 02/14/20 09:00 02/16/20 10:57 DC 02/16/20 08:57 Sertraline HCl (Zoloft) 100 mg DAILY PO 02/17/20 09:00 02/24/20 08:47 Trazodone HCl (Desyrel) 50 mg QHSP PRN PO INSOMNIA 02/04/20 16:15 Allergies Coded Allergies: No Known Allergies (Verified Allergy, Unknown, 02/04/20) LU JHA 16, 2020 09:22
[2020-02-24 17:20] VITALS: BP 139/79
[2020-02-24] MEDS: ARIPiprazole 15 MG TAB (AbiLIFY) PO SCH (20:49)
[2020-02-25 06:40] VITALS: BP 128/63
[2020-02-25] MEDS: SERTRALINE 100 MG TAB PO SCH (08:44)
[2020-02-25] MEDS: SERTRALINE HCL 25 MG TABLET PO SCH (08:45)
[2020-02-25] MEDS ORDERED: SERT-138 PO (09:52)
[2020-02-25] MEDS ORDERED: SERT25TA21 PO (09:52)
[2020-02-25] MEDS ORDERED: ABIL1TAB12 PO (09:52)
--- NOTE | 2020-02-25 10:28 | MHDSPDOC ---
[facility] Discharge Summary Discharge Summary DATE OF ADMISSION: February 04, 2020 at 16:15 DATE OF DISCHARGE:Feb 25, 2020 at 11:30 DISCHARGE DIAGNOSES: See Problem list below REASON FOR ADMISSION: 44-year-old woman admitted with psychotic depression CONSULTANTS INVOLVED:[ None (basic hospitalist screening)] TREATMENT AND PROGRESS ON THE UNIT : Medication changes: initially started on search lien increased to a total 125 mg daily, then augmented with Abilify increase to 15 mg daily, made slow but sure progress Behavior on unit: initially isolate to an unengaged, became more bright and engaged all the unit Treatment attendance: attended better she improved Notable issues on presentation: initially was pursuing long-term treatment. 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 Legal status considerations: The patient at the time of discharge did not meet criteria for involuntary admission/extension due to having a [normal] mental status exam, [fair] insight into the situation, They are engaged in the discharge process, as well as being friendly and amenable in behavioral control and havent been engaging in any observed concerning behavior or ideation recently. They decline voluntary extension/admission at this time and must be discharged in good sachi, as Im unable to make a case for holding the patient against their will. They may have historical risk factors of admissions and other interactions with psychiatry however, those are not modifiable from a clinical perspective. The patient will need to be discharged in good sachi. MENTAL STATUS EXAMINATION ON DISCHARGE: [General: Well dressed with good hygiene Speech: Spontaneous and fluid Thought processes: Linear and logical Thought content: Future orientated Abstract reasoning, and computation: Intact Description of associations: Intact Description of abnormal or psychotic thoughts:Denies any suicidal or homicidal ideation. Denies any auditory or visual hallucinations. Does not appear to be responding to internal stimuli. Does not appear to be endorsing any bizarre or paranoid ideation. Judgment: fair Insight: fair Orientation: Alert and orientated 3 Recent and remote memory: Intact Attention span and concentration: Intact Fund of knowledge: Adequate Mood: "okay" Affect: Euthymic with a full range] PLAN/FOLLOWUP ARRANGEMENTS: Follow up appointments made (PCP and MH in 5 days of D/C date) and safety plan completed. Safety Planning aspects completed prior to discharge [SAFE ACT reported on initial invol admission in ER] [Medication supplies limited to 7 days with 4 refills to prevent accumulation to OD] [Family contact completed, educated on safe practices, instructed on removal and mitigation of dangerous means] [RN reviewed crisis hotline information and other aspects to empower patient to access care in interim before next appointment.] The amount of time spent in the coordination of care for this patient was approximately 30 minutes. Vital Signs/I&Os Vital Signs Date Time Temp Pulse Resp B/P (MAP) Pulse Ox O2 Delivery O2 Flow Rate FiO2 02/25/20 06:40 97.5 70 16 128/63 (84) 98 Room Air Medications Scheduled Adalimumab (Humira) 40 Mg/0.8 Ml Syringekit, 40 MG SC Q2WK, (Reported) Aripiprazole (Abilify) 15 Mg Tablet, 15 MG PO QHS for mood for 7 Days, #7 Nicotine (Nicotine Patch) 14 Mg/24 Hr Patch.td24, 14 MG TOP DAILY, (Reported) Sertraline HCl (Sertraline HCl) 100 Mg Tablet, 100 MG PO DAILY for mood for 7 Days, #7 Sertraline HCl (Sertraline HCl) 25 Mg Tablet, 25 MG PO DAILY for mood for 7 Days, #7 Allergies Coded Allergies: No Known Allergies (Verified Allergy, Unknown, 02/04/20) Problems (1) Major depression with psychotic features Status: Resolved Plan / VTE VTE Prophylaxis Ordered?: No LU JHA DO Feb 25, 2020 10:27
== END 2020-02-25 11:30 | disposition home or self-care (01) | DRG 885 ==
LOC: M ED 11:06 → M ED INP 16:15 → M PSY 18:52
PROVIDERS: ADMIT Psychiatry & Neurology Addiction Medicine; ATTEND Psychiatry & Neurology Addiction Medicine
DX: F32.3 Major depressive disorder, single episode, severe with psychotic features (principal); L40.50 Arthropathic psoriasis, unspecified; Z79.899 Other long term (current) drug therapy

== ENCOUNTER → 2020-04-26 | Outpatient (CLI) | payer OTHER ==
[~2020-04-26] MED LIST changes: +ABIL1TAB12 PO; +NICO14DI31 TOP; +SERT-138 PO; +SERT25TA21 PO
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
== END ==
LOC: M WHC 07:05
PROVIDERS: ATTEND Student in an Organized Health Care Education/Training Program
DX: Z12.31 Encounter for screening mammogram for malignant neoplasm of breast (principal); Z85.9 Personal history of malignant neoplasm, unspecified